=== PATIENT | male | born 1970 | race Caucasian/White ===

== ENCOUNTER 2017-03-17 21:46 | Inpatient (IN) | payer MEDICARE, OTHER ==
[2017-03-17 22:54] LABS: ADD MAN DIFF? NO
[2017-03-17 22:56] LABS: BASOPHILS % 0.3 % (0.0-2.0); EOSINOPHILS # 0.1 10^3/ul (0.0-0.5); EOSINOPHILS % 1.9 % (0.0-7.0); HEMATOCRIT 38.4 % (42.0-52.0); HEMOGLOBIN 12.7 g/dl (14.0-18.0); LYMPHOCYTES # 1.1 10^3/ul (0.8-2.9); LYMPHOCYTES % 14.9 % (15.0-51.0); MEAN CORPUSCULAR HEMOGLOBIN 26.1 pg (29.0-33.0); MEAN CORPUSCULAR HGB CONC 33.1 g/dl (32.0-37.0); MEAN PLATELET VOLUME 9.7 fl (7.4-10.4); MONOCYTE # 0.6 10^3/ul (0.3-0.9); MONOCYTES % 8.5 % (0.0-11.0); NEUTROPHIL # 5.6 10^3/ul (1.6-7.5); PLATELET COUNT 258 10^3/UL (140-415); RED BLOOD COUNT 4.86 10^6/ul (4.70-6.10); RED CELL DISTRIBUTION WIDTH 16.1 % (11.5-14.5)
[2017-03-17 22:56] LABS: WHITE BLOOD COUNT 7.5 10^3/ul (4.8-10.8)
[2017-03-17] MEDS: CEFEPIME 1GM/50 ML (PMX) 50 ML IVPB (23:15)
[2017-03-17 23:46] LABS: INR 1.04; PROTIME 13.7 Sec (11.9-14.9); PT RATIO 1.1
[2017-03-17 23:55] LABS: ALANINE AMINOTRANSFERASE 27 IU/L (13-69); ALBUMIN/GLOBULIN RATIO 0.81; ALKALINE PHOSPHATASE 114 IU/L (42-121); ANION GAP 16 (8-16); ASPARTATE AMINO TRANSFERASE 15 IU/L (15-46); BLOOD UREA NITROGEN 16 mg/dl (7-20); CALCIUM 9.2 mg/dl (8.4-10.2); CARBON DIOXIDE 28 mmol/L (21-31); CHLORIDE 97 mmol/L (97-110); CREATININE 0.69 mg/dl (0.61-1.24); GLUCOSE 114 mg/dl (70-220); LIPASE 50 U/L (23-300); POTASSIUM 3.6 mmol/L (3.5-5.1); SODIUM 137 mmol/L (135-144); TOTAL PROTEIN 8.9 g/dl (6.1-8.1)
[2017-03-17 23:56] LABS: ADD MAN DIFF? NO
[2017-03-17 23:58] LABS: BASOPHILS % 0.1 % (0.0-2.0); EOSINOPHILS # 0.1 10^3/ul (0.0-0.5); EOSINOPHILS % 1.6 % (0.0-7.0); HEMATOCRIT 36.2 % (42.0-52.0); HEMOGLOBIN 11.9 g/dl (14.0-18.0); LYMPHOCYTES # 1.2 10^3/ul (0.8-2.9); LYMPHOCYTES % 15.9 % (15.0-51.0); MEAN CORPUSCULAR HEMOGLOBIN 26.2 pg (29.0-33.0); MEAN CORPUSCULAR HGB CONC 32.9 g/dl (32.0-37.0); MEAN CORPUSCULAR VOLUME 79.6 fl (82.0-101.0); MEAN PLATELET VOLUME 9.5 fl (7.4-10.4); MONOCYTE # 0.6 10^3/ul (0.3-0.9); NEUTROPHIL # 5.6 10^3/ul (1.6-7.5); NEUTROPHILS % 74.1 % (39.0-77.0); PLATELET COUNT 240 10^3/UL (140-415); RED BLOOD COUNT 4.55 10^6/ul (4.70-6.10); RED CELL DISTRIBUTION WIDTH 15.9 % (11.5-14.5)
[2017-03-17 23:58] LABS: WHITE BLOOD COUNT 7.5 10^3/ul (4.8-10.8)
[2017-03-18] MEDS: HYDROmorphONE 0.5 MG/0.5 ML SYG IV
[2017-03-18] MEDS: ONDANSETRON 4 MG INJ IV
[2017-03-18 00:23] LABS: ALANINE AMINOTRANSFERASE 17 IU/L (13-69); ALBUMIN 3.8 g/dl (3.3-4.9); ALKALINE PHOSPHATASE 111 IU/L (42-121); ASPARTATE AMINO TRANSFERASE 15 IU/L (15-46); TOTAL PROTEIN 8.6 g/dl (6.1-8.1)
[2017-03-18 00:26] LABS: ADD UMIC YES; UR ASCORBIC ACID NEGATIVE (NEGATIVE); UR BACTERIA FEW /HPF (NONE SEEN); UR BILIRUBIN (Dip) 1+ mg/dL (NEGATIVE); UR BLOOD (Dip) NEGATIVE (NEGATIVE); UR CALCIUM OXALATE CRYSTAL MANY /HPF (NONE SEEN); UR CLARITY CLOUDY (CLEAR); UR COLOR AMBER (YELLOW); UR GLUCOSE (Dip) NEGATIVE (NEGATIVE); UR KETONES (Dip) NEGATIVE (NEGATIVE); UR LEUKOCYTE ESTERASE (Dip) 3+ Leu/ul (NEGATIVE); UR MUCUS FEW /HPF (NONE SEEN); UR NITRITE (Dip) POSITIVE (NEGATIVE); UR RBC 10 /HPF (0-5); UR SPECIFIC GRAVITY (Dip) 1.031 (1.003-1.030); UR SQUAMOUS EPITHELIAL CELL FEW /HPF (FEW); UR TOTAL PROTEIN (Dip) 2+ mg/dl (NEGATIVE); UR UROBILINOGEN (Dip) 1+ mg/dL (NEGATIVE); UR WBC > 182 /HPF (0-5)
[2017-03-18 00:53] LABS: HEPATITIS B SURFACE ANTIGEN NEGATIVE (NEGATIVE)
[2017-03-18] MEDS ORDERED: ONDANSETRON 4 MG TAB PO (01:00)
[2017-03-18] MEDS ORDERED: NACL 0.9% 3 ML SYG IV (01:00)
[2017-03-18] MEDS ORDERED: VANCOMYCIN IV PER PHARMACY XX (01:00)
[2017-03-18] MEDS ORDERED: ACETAMINOPHEN 325 MG TAB PO (01:00)
[2017-03-18] MEDS ORDERED: BISACODYL (EC) 5 MG TAB PO (01:00)
[2017-03-18 01:10] LABS: HEPATITIS C VIRAL ANTIBODY NEGATIVE (NEGATIVE)
[2017-03-18 01:19] LABS: HIV 1&2 ANTIBODY NEGATIVE (NEGATIVE)
[2017-03-18 01:39] LABS: HEPATITIS B SURFACE ANTIBODY NEGATIVE (NEGATIVE)
[2017-03-18] MEDS: NICOTINE (14 MG/24 HR) PATCH TRANSDERM ×2 (01:44→08:33)
[2017-03-18] MEDS: LEVOFLOXACIN 750MG/D5W (PMX) 150 ML IVPB (01:44)
[2017-03-18] MEDS: VANCOMYCIN 1 GM (PMX) 250 ML IVPB (01:44)
[2017-03-18] MEDS: SOD CHLORIDE 0.9% 1,000 ML IV ×2 (01:45→16:49)
[2017-03-18] MEDS: VANCOMYCIN 1.75 GM in D5W 500 ML IVPB ×2 (01:46→06:26)
[2017-03-18] MEDS ORDERED: PENDING SANTYL ORDER FOR WOUND CARE XX (02:30)
[2017-03-18] MEDS ORDERED: HYDROmorphONE 1 MG/ML SYG (03:24)
[2017-03-18] MEDS: HYDROmorphONE 1 MG/ML SYG IV ×5 (03:35→21:29)
[2017-03-18] MEDS: HYDROCODONE/APAP (5/325) TAB PO (03:36)
[2017-03-18 06:19] LABS: ADD MAN DIFF? NO
[2017-03-18 06:28] LABS: WHITE BLOOD COUNT 6.2 10^3/ul (4.8-10.8)
[2017-03-18 06:28] LABS: BASOPHILS % 0.3 % (0.0-2.0); EOSINOPHILS # 0.2 10^3/ul (0.0-0.5); EOSINOPHILS % 2.6 % (0.0-7.0); HEMOGLOBIN 11.3 g/dl (14.0-18.0); LYMPHOCYTES # 1.3 10^3/ul (0.8-2.9); LYMPHOCYTES % 20.4 % (15.0-51.0); MEAN CORPUSCULAR HEMOGLOBIN 25.1 pg (29.0-33.0); MEAN CORPUSCULAR HGB CONC 31.4 g/dl (32.0-37.0); MEAN PLATELET VOLUME 9.9 fl (7.4-10.4); MONOCYTE # 0.6 10^3/ul (0.3-0.9); NEUTROPHIL # 4.1 10^3/ul (1.6-7.5); NEUTROPHILS % 66.2 % (39.0-77.0); PLATELET COUNT 244 10^3/UL (140-415); RED CELL DISTRIBUTION WIDTH 15.7 % (11.5-14.5)
[2017-03-18 06:49] LABS: ALANINE AMINOTRANSFERASE 25 IU/L (13-69); ALBUMIN 3.8 g/dl (3.3-4.9); ALBUMIN/GLOBULIN RATIO 0.92; ALKALINE PHOSPHATASE 106 IU/L (42-121); ANION GAP 14 (8-16); ASPARTATE AMINO TRANSFERASE 15 IU/L (15-46); BLOOD UREA NITROGEN 13 mg/dl (7-20); CALCIUM 9.1 mg/dl (8.4-10.2); CARBON DIOXIDE 26 mmol/L (21-31); CHLORIDE 102 mmol/L (97-110); CHOL/HDL RATIO 5.2 RATIO; CHOLESTEROL 148 mg/dl (100-200); CREATININE 0.55 mg/dl (0.61-1.24); GLUCOSE 104 mg/dl (70-220); HDL CHOLESTEROL 28 mg/dl (27-67); LDL CHOLESTEROL,CALCULATED 95 mg/dl; MAGNESIUM 1.9 mg/dl (1.7-2.5); POTASSIUM 4.1 mmol/L (3.5-5.1); SODIUM 138 mmol/L (135-144); TOTAL PROTEIN 7.9 g/dl (6.1-8.1); TRIGLYCERIDES 125 mg/dl (0-149)
[2017-03-18 07:16] LABS: HEMOGLOBIN A1C 5.2 % (0-5.9)
[2017-03-18 07:44] LABS: THYROID STIMULATING HORMONE 0.572 MIU/L (0.465-4.680)
[2017-03-18] MEDS: DULOXETINE 30 MG CAP DR PO (08:33)
[2017-03-18] MEDS: GABAPENTIN 300 MG CAP PO ×3 (08:36→21:29)
[2017-03-18] MEDS: ALPRAZOLAM 0.5 MG TAB PO ×2 (08:49→23:08)
[2017-03-18] MEDS ORDERED: VANCOMYCIN 1.25 GM in SOD CHLORIDE 0.45% 250 ML IVPB (11:00)
[2017-03-18] MEDS: VANCOMYCIN 1.25 GM in SOD CHLORIDE 0.45% 250 ML IVPB ×2 (14:08→21:30)
[2017-03-18] MEDS ORDERED: BARIUM SULF 2% 450 ML BTL (BERRY SMOOTHIE) PO (20:00)
[2017-03-18] MEDS: SOD CHLORIDE 0.9% 100 ML (22:19)
[2017-03-18] MEDS: IODIXANOL LOCM 100 ML BTL (22:19)
[2017-03-19] MEDS ORDERED: COLLAGENASE 30 GM TUBE TOP (01:30)
[2017-03-19] MEDS: LEVOFLOXACIN 750MG/D5W (PMX) 150 ML IVPB (02:19)
[2017-03-19] MEDS: HYDROmorphONE 1 MG/ML SYG IV ×5 (03:26→20:31)
[2017-03-19] MEDS: SOD CHLORIDE 0.9% 1,000 ML IV ×2 (05:21→19:39)
[2017-03-19 06:48] LABS: VANCOMYCIN,TROUGH 24.3 ug/ml (10.0-20.0)
[2017-03-19] MEDS: DULOXETINE 30 MG CAP DR PO (08:25)
[2017-03-19] MEDS: NICOTINE (14 MG/24 HR) PATCH TRANSDERM (08:25)
[2017-03-19] MEDS: GABAPENTIN 300 MG CAP PO ×3 (08:25→20:33)
[2017-03-19] MEDS: ALPRAZOLAM 0.5 MG TAB PO ×2 (08:30→23:22)
[2017-03-19] MEDS: COLLAGENASE 30 GM TUBE TOP (11:35)
[2017-03-19] MEDS: VANCOMYCIN 1.25 GM in SOD CHLORIDE 0.45% 250 ML IVPB ×2 (12:28→23:23)
[2017-03-19] MEDS ORDERED: [UNRECOGNIZED DRUG - REMARK] MC (14:30)
[2017-03-20] MEDS ORDERED: ZOLPIDEM 5 MG TAB PO (01:00)
[2017-03-20] MEDS: HYDROmorphONE 1 MG/ML SYG IV ×5 (01:49→23:14)
[2017-03-20] MEDS: LEVOFLOXACIN 750MG/D5W (PMX) 150 ML IVPB (03:09)
[2017-03-20 06:19] LABS: BLOOD UREA NITROGEN 9 mg/dl (7-20)
[2017-03-20 06:19] LABS: CREATININE 0.63 mg/dl (0.61-1.24)
[2017-03-20 06:49] LABS: C-REACTIVE PROTEIN 7.3 mg/dl (0.0-0.9)
[2017-03-20] MEDS: GABAPENTIN 300 MG CAP PO ×3 (08:22→20:23)
[2017-03-20] MEDS: DULOXETINE 30 MG CAP DR PO (08:22)
[2017-03-20] MEDS: NICOTINE (14 MG/24 HR) PATCH TRANSDERM (08:23)
[2017-03-20] MEDS: COLLAGENASE 30 GM TUBE TOP (08:23)
[2017-03-20 09:21] LABS: ERYTHROCYTE SEDIMENTATION RATE 92 mm/Hr (0-15)
[2017-03-20] MEDS: SOD CHLORIDE 0.9% 1,000 ML IV ×3 (09:57→20:23)
[2017-03-20] MEDS: ALPRAZOLAM 0.5 MG TAB PO (10:01)
[2017-03-20] MEDS: VANCOMYCIN 1.25 GM in SOD CHLORIDE 0.45% 250 ML IVPB (12:22)
[2017-03-20] MEDS: CEFTRIAXONE 1 GM/50 ML (PMX) 50 ML IVPB (14:58)
[2017-03-21 00:05] LABS: VANCOMYCIN,TROUGH 15.1 ug/ml (10.0-20.0)
[2017-03-21] MEDS: VANCOMYCIN 1.25 GM in SOD CHLORIDE 0.45% 250 ML IVPB ×2 (00:20→12:43)
[2017-03-21] MEDS: ALPRAZOLAM 0.5 MG TAB PO ×3 (00:28→19:53)
[2017-03-21] MEDS: HYDROmorphONE 1 MG/ML SYG IV ×2 (04:40→10:06)
[2017-03-21] MEDS: GABAPENTIN 300 MG CAP PO ×3 (08:32→20:54)
[2017-03-21] MEDS: NICOTINE (14 MG/24 HR) PATCH TRANSDERM (08:32)
[2017-03-21] MEDS: DULOXETINE 30 MG CAP DR PO (08:32)
[2017-03-21] MEDS: CEFTRIAXONE 1 GM/50 ML (PMX) 50 ML IVPB (12:14)
[2017-03-21] MEDS ORDERED: oxyCODONE 5 MG TAB PO (14:30)
[2017-03-21] MEDS: SOD CHLORIDE 0.9% 1,000 ML IV ×2 (14:33→21:18)
[2017-03-21] MEDS: COLLAGENASE 30 GM TUBE TOP (15:00)
[2017-03-21] MEDS: HYDROmorphONE 2 MG/ML SYG IV ×2 (15:07→19:48)
[2017-03-21] MEDS: hydrALAzine 20 MG INJ IV (20:54)
[2017-03-22] MEDS: VANCOMYCIN 1.25 GM in SOD CHLORIDE 0.45% 250 ML IVPB ×3 (00:03→23:23)
[2017-03-22] MEDS: HYDROmorphONE 2 MG/ML SYG IV ×5 (00:04→23:19)
[2017-03-22] MEDS: NICOTINE (14 MG/24 HR) PATCH TRANSDERM (09:51)
[2017-03-22] MEDS: GABAPENTIN 300 MG CAP PO ×3 (09:51→21:02)
[2017-03-22] MEDS: DULOXETINE 30 MG CAP DR PO (09:51)
[2017-03-22] MEDS: COLLAGENASE 30 GM TUBE TOP (09:58)
[2017-03-22] MEDS: CEFTRIAXONE 1 GM/50 ML (PMX) 50 ML IVPB (11:39)
[2017-03-22] MEDS: ALPRAZOLAM 0.5 MG TAB PO (16:46)
[2017-03-22] MEDS: SOD CHLORIDE 0.9% 1,000 ML IV ×2 (18:39→23:08)
[2017-03-23] MEDS: HYDROmorphONE 2 MG/ML SYG IV ×4 (05:04→20:54)
[2017-03-23 06:23] LABS: BLOOD UREA NITROGEN 17 mg/dl (7-20)
[2017-03-23 06:23] LABS: CREATININE 0.63 mg/dl (0.61-1.24)
[2017-03-23] MEDS: GABAPENTIN 300 MG CAP PO ×3 (09:04→20:53)
[2017-03-23] MEDS: DULOXETINE 30 MG CAP DR PO (09:04)
[2017-03-23] MEDS: NICOTINE (14 MG/24 HR) PATCH TRANSDERM (09:04)
[2017-03-23] MEDS: COLLAGENASE 30 GM TUBE TOP (09:08)
[2017-03-23] MEDS: CEFTRIAXONE 1 GM/50 ML (PMX) 50 ML IVPB (12:26)
[2017-03-23] MEDS: VANCOMYCIN 1.25 GM in SOD CHLORIDE 0.45% 250 ML IVPB ×2 (13:33→23:43)
[2017-03-23] MEDS: ALPRAZOLAM 0.5 MG TAB PO ×2 (13:37→23:54)
[2017-03-23] MEDS: SOD CHLORIDE 0.9% 1,000 ML IV (23:45)
[2017-03-24] MEDS: HYDROmorphONE 2 MG/ML SYG IV ×4 (01:54→17:58)
[2017-03-24 06:44] LABS: ADD MAN DIFF? NO
[2017-03-24 06:47] LABS: BASOPHILS % 0.4 % (0.0-2.0); EOSINOPHILS # 0.3 10^3/ul (0.0-0.5); EOSINOPHILS % 3.5 % (0.0-7.0); HEMATOCRIT 39.9 % (42.0-52.0); HEMOGLOBIN 12.5 g/dl (14.0-18.0); LYMPHOCYTES # 2.8 10^3/ul (0.8-2.9); LYMPHOCYTES % 34.2 % (15.0-51.0); MEAN CORPUSCULAR HEMOGLOBIN 25.5 pg (29.0-33.0); MEAN CORPUSCULAR HGB CONC 31.3 g/dl (32.0-37.0); MEAN CORPUSCULAR VOLUME 81.3 fl (82.0-101.0); MEAN PLATELET VOLUME 9.5 fl (7.4-10.4); MONOCYTE # 0.4 10^3/ul (0.3-0.9); MONOCYTES % 5.1 % (0.0-11.0); NEUTROPHIL # 4.6 10^3/ul (1.6-7.5); NEUTROPHILS % 56.4 % (39.0-77.0); PLATELET COUNT 340 10^3/UL (140-415); RED BLOOD COUNT 4.91 10^6/ul (4.70-6.10); RED CELL DISTRIBUTION WIDTH 15.5 % (11.5-14.5)
[2017-03-24 06:47] LABS: WHITE BLOOD COUNT 8.2 10^3/ul (4.8-10.8)
[2017-03-24 07:23] LABS: ANION GAP 15 (8-16); BLOOD UREA NITROGEN 16 mg/dl (7-20); CALCIUM 9.4 mg/dl (8.4-10.2); CARBON DIOXIDE 30 mmol/L (21-31); CHLORIDE 104 mmol/L (97-110); CREATININE 0.67 mg/dl (0.61-1.24); GLUCOSE 98 mg/dl (70-220); MAGNESIUM 1.8 mg/dl (1.7-2.5); POTASSIUM 4.9 mmol/L (3.5-5.1); SODIUM 144 mmol/L (135-144)
[2017-03-24] MEDS: GABAPENTIN 300 MG CAP PO ×3 (08:25→21:13)
[2017-03-24] MEDS: COLLAGENASE 30 GM TUBE TOP (08:25)
[2017-03-24] MEDS: DULOXETINE 30 MG CAP DR PO (08:25)
[2017-03-24] MEDS: NICOTINE (14 MG/24 HR) PATCH TRANSDERM (08:26)
[2017-03-24] MEDS: ALPRAZOLAM 0.5 MG TAB PO ×2 (11:54→23:30)
[2017-03-24] MEDS: CEFTRIAXONE 1 GM/50 ML (PMX) 50 ML IVPB (11:54)
[2017-03-24] MEDS: VANCOMYCIN 1.25 GM in SOD CHLORIDE 0.45% 250 ML IVPB (12:49)
[2017-03-24] MEDS: SOD CHLORIDE 0.9% 1,000 ML IV ×2 (17:13→23:23)
[2017-03-24 23:50] LABS: VANCOMYCIN,TROUGH 21.3 ug/ml (10.0-20.0)
[2017-03-25] MEDS: HYDROmorphONE 2 MG/ML SYG IV ×4 (03:44→21:14)
[2017-03-25 05:20] LABS: ADD MAN DIFF? NO
[2017-03-25 05:35] LABS: BASOPHILS % 0.4 % (0.0-2.0); EOSINOPHILS # 0.3 10^3/ul (0.0-0.5); EOSINOPHILS % 3.3 % (0.0-7.0); HEMATOCRIT 38.9 % (42.0-52.0); LYMPHOCYTES # 2.4 10^3/ul (0.8-2.9); LYMPHOCYTES % 31.6 % (15.0-51.0); MEAN CORPUSCULAR HEMOGLOBIN 24.9 pg (29.0-33.0); MEAN CORPUSCULAR HGB CONC 30.8 g/dl (32.0-37.0); MEAN CORPUSCULAR VOLUME 80.9 fl (82.0-101.0); MEAN PLATELET VOLUME 9.9 fl (7.4-10.4); MONOCYTE # 0.4 10^3/ul (0.3-0.9); MONOCYTES % 5.3 % (0.0-11.0); NEUTROPHIL # 4.4 10^3/ul (1.6-7.5); NEUTROPHILS % 59.1 % (39.0-77.0); PLATELET COUNT 322 10^3/UL (140-415); RED BLOOD COUNT 4.81 10^6/ul (4.70-6.10); RED CELL DISTRIBUTION WIDTH 15.6 % (11.5-14.5)
[2017-03-25 05:35] LABS: WHITE BLOOD COUNT 7.5 10^3/ul (4.8-10.8)
[2017-03-25 06:19] LABS: ANION GAP 13 (8-16); BLOOD UREA NITROGEN 22 mg/dl (7-20); CALCIUM 9.3 mg/dl (8.4-10.2); CARBON DIOXIDE 29 mmol/L (21-31); CHLORIDE 103 mmol/L (97-110); CREATININE 0.71 mg/dl (0.61-1.24); GLUCOSE 146 mg/dl (70-220); POTASSIUM 4.1 mmol/L (3.5-5.1); SODIUM 141 mmol/L (135-144)
[2017-03-25] MEDS: GABAPENTIN 300 MG CAP PO ×3 (09:01→20:16)
[2017-03-25] MEDS: DULOXETINE 30 MG CAP DR PO (09:01)
[2017-03-25] MEDS: NICOTINE (14 MG/24 HR) PATCH TRANSDERM (09:01)
[2017-03-25] MEDS: COLLAGENASE 30 GM TUBE TOP (09:02)
[2017-03-25] MEDS: CEFTRIAXONE 1 GM/50 ML (PMX) 50 ML IVPB (12:30)
[2017-03-25] MEDS: ALPRAZOLAM 0.5 MG TAB PO (12:31)
[2017-03-25] MEDS: VANCOMYCIN 1.5 GM in DEXTROSE 5% 500 ML IVPB (13:54)
[2017-03-25] MEDS: SOD CHLORIDE 0.9% 1,000 ML IV (18:37)
[2017-03-25] MEDS: DOCUSATE SODIUM 100 MG CAP PO (20:16)
[2017-03-26] MEDS: HYDROmorphONE 2 MG/ML SYG IV ×3 (05:06→18:32)
[2017-03-26 05:17] LABS: ADD MAN DIFF? NO
[2017-03-26 05:26] LABS: WHITE BLOOD COUNT 7.9 10^3/ul (4.8-10.8)
[2017-03-26 05:26] LABS: BASOPHILS % 0.4 % (0.0-2.0); EOSINOPHILS # 0.3 10^3/ul (0.0-0.5); EOSINOPHILS % 3.9 % (0.0-7.0); HEMATOCRIT 41.3 % (42.0-52.0); HEMOGLOBIN 12.9 g/dl (14.0-18.0); LYMPHOCYTES # 2.3 10^3/ul (0.8-2.9); LYMPHOCYTES % 29.2 % (15.0-51.0); MEAN CORPUSCULAR HEMOGLOBIN 25.5 pg (29.0-33.0); MEAN CORPUSCULAR HGB CONC 31.2 g/dl (32.0-37.0); MEAN CORPUSCULAR VOLUME 81.8 fl (82.0-101.0); MEAN PLATELET VOLUME 9.8 fl (7.4-10.4); MONOCYTE # 0.5 10^3/ul (0.3-0.9); MONOCYTES % 6.1 % (0.0-11.0); NEUTROPHIL # 4.7 10^3/ul (1.6-7.5); PLATELET COUNT 332 10^3/UL (140-415); RED BLOOD COUNT 5.05 10^6/ul (4.70-6.10); RED CELL DISTRIBUTION WIDTH 15.7 % (11.5-14.5)
[2017-03-26 06:04] LABS: ANION GAP 15 (8-16); BLOOD UREA NITROGEN 18 mg/dl (7-20); CALCIUM 9.2 mg/dl (8.4-10.2); CARBON DIOXIDE 29 mmol/L (21-31); CHLORIDE 103 mmol/L (97-110); CREATININE 0.67 mg/dl (0.61-1.24); GLUCOSE 97 mg/dl (70-220); POTASSIUM 4.4 mmol/L (3.5-5.1); SODIUM 143 mmol/L (135-144)
[2017-03-26] MEDS: COLLAGENASE 30 GM TUBE TOP (08:48)
[2017-03-26] MEDS: SOD CHLORIDE 0.9% 1,000 ML IV ×2 (08:48→23:15)
[2017-03-26] MEDS: NICOTINE (14 MG/24 HR) PATCH TRANSDERM (08:49)
[2017-03-26] MEDS: GABAPENTIN 300 MG CAP PO ×3 (08:49→21:07)
[2017-03-26] MEDS: DULOXETINE 30 MG CAP DR PO (08:49)
[2017-03-26] MEDS: CEFTRIAXONE 1 GM/50 ML (PMX) 50 ML IVPB (13:26)
[2017-03-26] MEDS: VANCOMYCIN 1.5 GM in DEXTROSE 5% 500 ML IVPB (14:04)
[2017-03-26] MEDS: ALPRAZOLAM 0.5 MG TAB PO ×2 (14:09→21:08)
[2017-03-27] MEDS: HYDROmorphONE 2 MG/ML SYG IV ×5 (00:49→20:50)
[2017-03-27] MEDS: SOD CHLORIDE 0.9% 1,000 ML IV (01:41)
[2017-03-27 06:19] LABS: ADD MAN DIFF? NO
[2017-03-27 06:30] LABS: WHITE BLOOD COUNT 7.9 10^3/ul (4.8-10.8)
[2017-03-27 06:30] LABS: BASOPHIL # 0.1 10^3/ul (0.0-0.1); BASOPHILS % 0.6 % (0.0-2.0); EOSINOPHILS # 0.3 10^3/ul (0.0-0.5); EOSINOPHILS % 3.7 % (0.0-7.0); HEMATOCRIT 40.3 % (42.0-52.0); HEMOGLOBIN 12.2 g/dl (14.0-18.0); LYMPHOCYTES # 2.8 10^3/ul (0.8-2.9); LYMPHOCYTES % 36.2 % (15.0-51.0); MEAN CORPUSCULAR HEMOGLOBIN 24.7 pg (29.0-33.0); MEAN CORPUSCULAR HGB CONC 30.3 g/dl (32.0-37.0); MEAN CORPUSCULAR VOLUME 81.6 fl (82.0-101.0); MEAN PLATELET VOLUME 10.1 fl (7.4-10.4); MONOCYTE # 0.6 10^3/ul (0.3-0.9); MONOCYTES % 7.1 % (0.0-11.0); NEUTROPHIL # 4.1 10^3/ul (1.6-7.5); NEUTROPHILS % 51.9 % (39.0-77.0); PLATELET COUNT 310 10^3/UL (140-415); RED BLOOD COUNT 4.94 10^6/ul (4.70-6.10); RED CELL DISTRIBUTION WIDTH 15.8 % (11.5-14.5)
[2017-03-27 07:15] LABS: ANION GAP 15 (8-16); BLOOD UREA NITROGEN 17 mg/dl (7-20); CALCIUM 8.8 mg/dl (8.4-10.2); CARBON DIOXIDE 29 mmol/L (21-31); CHLORIDE 105 mmol/L (97-110); CREATININE 0.69 mg/dl (0.61-1.24); GLUCOSE 97 mg/dl (70-220); POTASSIUM 4.3 mmol/L (3.5-5.1); SODIUM 145 mmol/L (135-144)
[2017-03-27] MEDS: NICOTINE (14 MG/24 HR) PATCH TRANSDERM (09:09)
[2017-03-27] MEDS: DULOXETINE 30 MG CAP DR PO (09:10)
[2017-03-27] MEDS: ALPRAZOLAM 0.5 MG TAB PO ×2 (09:10→14:50)
[2017-03-27] MEDS: GABAPENTIN 300 MG CAP PO ×3 (09:10→20:40)
[2017-03-27] MEDS: COLLAGENASE 30 GM TUBE TOP ×2 (09:14→09:15)
[2017-03-27] MEDS: CEFTRIAXONE 1 GM/50 ML (PMX) 50 ML IVPB (12:53)
[2017-03-27] MEDS: VANCOMYCIN 1.5 GM in DEXTROSE 5% 500 ML IVPB (13:52)
[2017-03-27] MEDS: LIDOCAINE 1% (MPF) 5 ML VIAL SC (19:25)
[2017-03-27] MEDS: SOD CHLORIDE 0.9% 100 ML (19:40)
[2017-03-28] MEDS: ALPRAZOLAM 0.5 MG TAB PO ×2 (01:49→10:25)
[2017-03-28] MEDS: HYDROmorphONE 2 MG/ML SYG IV ×4 (04:08→16:36)
[2017-03-28] MEDS: DOCUSATE SODIUM 100 MG CAP PO (05:39)
[2017-03-28] MEDS: DULOXETINE 30 MG CAP DR PO (08:05)
[2017-03-28] MEDS: GABAPENTIN 300 MG CAP PO ×2 (08:05→12:10)
[2017-03-28] MEDS: NICOTINE (14 MG/24 HR) PATCH TRANSDERM (08:05)
[2017-03-28] MEDS: COLLAGENASE 30 GM TUBE TOP (08:07)
[2017-03-28] MEDS: CEFTRIAXONE 1 GM/50 ML (PMX) 50 ML IVPB (11:59)
[2017-03-28] MEDS: VANCOMYCIN 1.5 GM in DEXTROSE 5% 500 ML IVPB (12:54)
== END 2017-03-28 19:01 | disposition home health service (06) | DRG 580 ==
LOC: PP2 23:13 → E/R 21:46
PROVIDERS: Family Medicine
PROC: 0KBN0ZZ Excision of Right Hip Muscle, Open Approach (ICD-10-PCS; principal; 2017-03-21)
PROC: 02HV33Z Insertion of Infusion Device into Superior Vena Cava, Percutaneous Approach (ICD-10-PCS; 2017-03-27)
PROC: B548ZZA Ultrasonography of Superior Vena Cava, Guidance (ICD-10-PCS; 2017-03-27)
DX: L89.210 Pressure ulcer of right hip, unstageable (principal); G82.20 Paraplegia, unspecified; L89.314 Pressure ulcer of right buttock, stage 4; T83.511A Infection and inflammatory reaction due to indwelling urethral catheter, initial encounter; S14.109S Unspecified injury at unspecified level of cervical spinal cord, sequela; M86.8X8 Other osteomyelitis, other site; N39.0 Urinary tract infection, site not specified; Z74.01 Bed confinement status; F32.9 Major depressive disorder, single episode, unspecified; X58.XXXS Exposure to other specified factors, sequela; F17.200 Nicotine dependence, unspecified, uncomplicated; D50.9 Iron deficiency anemia, unspecified; B95.2 Enterococcus as the cause of diseases classified elsewhere; B95.62 Methicillin resistant Staphylococcus aureus infection as the cause of diseases classified elsewhere; B96.1 Klebsiella pneumoniae [K. pneumoniae] as the cause of diseases classified elsewhere; B96.4 Proteus (mirabilis) (morganii) as the cause of diseases classified elsewhere
CPT/HCPCS: 36415; 36569; 71045; 72193; 73510; 76937; 78315; 80048; 80053; 80061; 80076; 80202; 81001; 82565; 83036; 83690; 83735; 84443; 84520; 85025; 85610; 85651; 86140; 86703; 86706; 86803; 87040; 87070; 87086; 87340; 96365; 96375; 99285-25; A9503

== ENCOUNTER 2017-05-06 22:13 | Inpatient (IN) | payer MEDICARE, OTHER ==
[2017-05-06 23:58] LABS: ADD MAN DIFF? NO
[2017-05-07 00:04] LABS: WHITE BLOOD COUNT 6.5 10^3/ul (4.8-10.8)
[2017-05-07 00:04] LABS: BASOPHILS % 0.5 % (0.0-2.0); EOSINOPHILS # 0.1 10^3/ul (0.0-0.5); EOSINOPHILS % 0.9 % (0.0-7.0); HEMATOCRIT 37.9 % (42.0-52.0); HEMOGLOBIN 12.2 g/dl (14.0-18.0); LYMPHOCYTES # 1.5 10^3/ul (0.8-2.9); LYMPHOCYTES % 22.8 % (15.0-51.0); MEAN CORPUSCULAR HEMOGLOBIN 25.8 pg (29.0-33.0); MEAN CORPUSCULAR HGB CONC 32.2 g/dl (32.0-37.0); MEAN CORPUSCULAR VOLUME 80.3 fl (82.0-101.0); MONOCYTE # 0.3 10^3/ul (0.3-0.9); NEUTROPHIL # 4.6 10^3/ul (1.6-7.5); NEUTROPHILS % 71.5 % (39.0-77.0); PLATELET COUNT 321 10^3/UL (140-415); RED BLOOD COUNT 4.72 10^6/ul (4.70-6.10); RED CELL DISTRIBUTION WIDTH 16.6 % (11.5-14.5)
[2017-05-07] MEDS: SOD CHLORIDE 0.9% 1,000 ML IV (00:05)
[2017-05-07 00:30] LABS: ALANINE AMINOTRANSFERASE 23 IU/L (13-69); ALBUMIN 4.5 g/dl (3.3-4.9); ALBUMIN/GLOBULIN RATIO 1.04; ALKALINE PHOSPHATASE 137 IU/L (42-121); ANION GAP 24 (8-16); ASPARTATE AMINO TRANSFERASE 21 IU/L (15-46); BLOOD UREA NITROGEN 9 mg/dl (7-20); CALCIUM 9.4 mg/dl (8.4-10.2); CARBON DIOXIDE 22 mmol/L (21-31); CHLORIDE 110 mmol/L (97-110); CREATININE 0.57 mg/dl (0.61-1.24); GLUCOSE 89 mg/dl (70-220); SODIUM 152 mmol/L (135-144); TOTAL PROTEIN 8.8 g/dl (6.1-8.1)
[2017-05-07 00:33] LABS: LACTIC ACID 2.8 mmol/L (0.5-2.0)
[2017-05-07 00:42] LABS: TROPONIN-I < 0.012 ng/ml (0.00-0.12)
[2017-05-07] MEDS: morphine 4 MG/ML VIAL IV (00:57)
[2017-05-07] MEDS ORDERED: ACETAMINOPHEN 325 MG TAB PO (01:00)
[2017-05-07] MEDS ORDERED: ALBUTEROL/IPRATROPIUM (NEB) 3 ML AMP HHN (01:00)
[2017-05-07] MEDS ORDERED: NACL 0.9% 3 ML SYG IV (01:00)
[2017-05-07] MEDS ORDERED: ONDANSETRON 4 MG INJ IV (01:00)
[2017-05-07 01:01] LABS: ADD UMIC YES; UR ASCORBIC ACID NEGATIVE (NEGATIVE); UR BACTERIA FEW /HPF (NONE SEEN); UR BILIRUBIN (Dip) NEGATIVE (NEGATIVE); UR BLOOD (Dip) 1+ mg/dL (NEGATIVE); UR CLARITY CLEAR (CLEAR); UR COLOR YELLOW (YELLOW); UR GLUCOSE (Dip) NEGATIVE (NEGATIVE); UR KETONES (Dip) NEGATIVE (NEGATIVE); UR LEUKOCYTE ESTERASE (Dip) 2+ Leu/ul (NEGATIVE); UR MUCUS FEW /HPF (NONE SEEN); UR NITRITE (Dip) NEGATIVE (NEGATIVE); UR RBC 14 /HPF (0-5); UR SPECIFIC GRAVITY (Dip) 1.025 (1.003-1.030); UR TOTAL PROTEIN (Dip) 2+ mg/dl (NEGATIVE); UR UROBILINOGEN (Dip) NEGATIVE (NEGATIVE); UR WBC 15 /HPF (0-5)
[2017-05-07] MEDS: CEFTRIAXONE 1 GM/50 ML (PMX) 50 ML IVPB ×3 (01:40→20:23)
[2017-05-07] MEDS: GABAPENTIN 300 MG CAP PO ×3 (02:31→20:23)
[2017-05-07] MEDS: ALPRAZOLAM 1 MG TAB PO (02:58)
[2017-05-07] MEDS: morphine 2 MG INJ IV ×2 (04:37→08:02)
[2017-05-07 05:10] LABS: ADD MAN DIFF? NO
[2017-05-07 05:13] LABS: BASOPHILS % 0.4 % (0.0-2.0); EOSINOPHILS # 0.1 10^3/ul (0.0-0.5); HEMATOCRIT 34.8 % (42.0-52.0); HEMOGLOBIN 11.1 g/dl (14.0-18.0); LYMPHOCYTES % 28.4 % (15.0-51.0); MEAN CORPUSCULAR HEMOGLOBIN 25.7 pg (29.0-33.0); MEAN CORPUSCULAR HGB CONC 31.9 g/dl (32.0-37.0); MEAN CORPUSCULAR VOLUME 80.6 fl (82.0-101.0); MEAN PLATELET VOLUME 9.9 fl (7.4-10.4); MONOCYTE # 0.5 10^3/ul (0.3-0.9); MONOCYTES % 6.7 % (0.0-11.0); NEUTROPHIL # 4.5 10^3/ul (1.6-7.5); NEUTROPHILS % 63.2 % (39.0-77.0); PLATELET COUNT 296 10^3/UL (140-415); RED BLOOD COUNT 4.32 10^6/ul (4.70-6.10); RED CELL DISTRIBUTION WIDTH 16.8 % (11.5-14.5)
[2017-05-07 05:13] LABS: WHITE BLOOD COUNT 7.2 10^3/ul (4.8-10.8)
[2017-05-07] MEDS ORDERED: HYDROCODONE/APAP (5/325) TAB PO (05:30)
[2017-05-07 05:39] LABS: LACTIC ACID 1.6 mmol/L (0.5-2.0)
[2017-05-07 05:47] LABS: ALANINE AMINOTRANSFERASE 20 IU/L (13-69); ALBUMIN 4.2 g/dl (3.3-4.9); ALBUMIN/GLOBULIN RATIO 1.05; ALKALINE PHOSPHATASE 126 IU/L (42-121); ANION GAP 17 (8-16); ASPARTATE AMINO TRANSFERASE 19 IU/L (15-46); BILIRUBIN,INDIRECT 0.1 mg/dl (0-1.1); BILIRUBIN,TOTAL 0.1 mg/dl (0.2-1.3); BLOOD UREA NITROGEN 10 mg/dl (7-20); CALCIUM 8.9 mg/dl (8.4-10.2); CARBON DIOXIDE 26 mmol/L (21-31); CHLORIDE 110 mmol/L (97-110); CREATININE 0.57 mg/dl (0.61-1.24); GLUCOSE 81 mg/dl (70-220); SODIUM 149 mmol/L (135-144); TOTAL PROTEIN 8.2 g/dl (6.1-8.1)
[2017-05-07] MEDS: HYDROCODONE/APAP (5/325) TAB PO ×4 (05:48→23:48)
[2017-05-07] MEDS: DEXTROSE 5% 1,000 ML IV ×2 (05:50→09:20)
[2017-05-07] MEDS ORDERED: PENDING SANTYL ORDER FOR WOUND CARE XX (08:00)
[2017-05-07] MEDS: ALPRAZOLAM 0.5 MG TAB PO (09:09)
[2017-05-07] MEDS: ENOXAPARIN 40 MG/0.4 ML SYG SC (09:10)
[2017-05-07] MEDS: HYDROmorphONE 0.5 MG/0.5 ML SYG IV ×5 (09:44→21:36)
[2017-05-07] MEDS: NICOTINE (21 MG/24 HR) PATCH TRANSDERM (11:19)
[2017-05-07] MEDS: morphine (ER) 15 MG TAB PO ×2 (11:19→20:23)
[2017-05-07] MEDS: DULOXETINE 30 MG CAP DR PO (11:19)
[2017-05-07] MEDS: hydrALAzine 20 MG INJ IV (11:32)
[2017-05-07] MEDS ORDERED: HYDROmorphONE 0.5 MG/0.5 ML SYG IV (12:00)
[2017-05-07] MEDS: LORAZEPAM 1 MG TAB PO ×2 (13:01→20:23)
[2017-05-08] MEDS: HYDROmorphONE 0.5 MG/0.5 ML SYG IV ×7 (00:54→21:31)
[2017-05-08] MEDS: LORAZEPAM 1 MG TAB PO ×2 (02:58→09:07)
[2017-05-08] MEDS: COLLAGENASE 30 GM TUBE TOP ×2 (02:59→09:07)
[2017-05-08] MEDS: DEXTROSE 5% 1,000 ML IV (03:16)
[2017-05-08 06:08] LABS: ADD MAN DIFF? NO
[2017-05-08 06:10] LABS: BASOPHILS % 0.5 % (0.0-2.0); EOSINOPHILS # 0.1 10^3/ul (0.0-0.5); EOSINOPHILS % 1.9 % (0.0-7.0); HEMATOCRIT 32.2 % (42.0-52.0); HEMOGLOBIN 10.5 g/dl (14.0-18.0); LYMPHOCYTES % 31.4 % (15.0-51.0); MEAN CORPUSCULAR HEMOGLOBIN 26.3 pg (29.0-33.0); MEAN CORPUSCULAR HGB CONC 32.6 g/dl (32.0-37.0); MEAN CORPUSCULAR VOLUME 80.5 fl (82.0-101.0); MEAN PLATELET VOLUME 9.8 fl (7.4-10.4); MONOCYTE # 0.5 10^3/ul (0.3-0.9); MONOCYTES % 8.4 % (0.0-11.0); NEUTROPHIL # 3.6 10^3/ul (1.6-7.5); NEUTROPHILS % 57.6 % (39.0-77.0); PLATELET COUNT 268 10^3/UL (140-415); RED CELL DISTRIBUTION WIDTH 16.8 % (11.5-14.5)
[2017-05-08 06:10] LABS: WHITE BLOOD COUNT 6.2 10^3/ul (4.8-10.8)
[2017-05-08 06:36] LABS: ALANINE AMINOTRANSFERASE 25 IU/L (13-69); ALBUMIN 3.8 g/dl (3.3-4.9); ALBUMIN/GLOBULIN RATIO 1.05; ALKALINE PHOSPHATASE 109 IU/L (42-121); ANION GAP 14 (8-16); ASPARTATE AMINO TRANSFERASE 18 IU/L (15-46); BILIRUBIN,INDIRECT 0.2 mg/dl (0-1.1); BILIRUBIN,TOTAL 0.2 mg/dl (0.2-1.3); BLOOD UREA NITROGEN 7 mg/dl (7-20); CALCIUM 8.8 mg/dl (8.4-10.2); CARBON DIOXIDE 29 mmol/L (21-31); CHLORIDE 108 mmol/L (97-110); CREATININE 0.62 mg/dl (0.61-1.24); GLUCOSE 88 mg/dl (70-220); MAGNESIUM 1.8 mg/dl (1.7-2.5); PHOSPHORUS 3.8 mg/dl (2.5-4.9); POTASSIUM 4.3 mmol/L (3.5-5.1); SODIUM 147 mmol/L (135-144); TOTAL PROTEIN 7.4 g/dl (6.1-8.1)
[2017-05-08] MEDS: CEFTRIAXONE 1 GM/50 ML (PMX) 50 ML IVPB ×2 (09:06→20:21)
[2017-05-08] MEDS: morphine (ER) 15 MG TAB PO (09:07)
[2017-05-08] MEDS: GABAPENTIN 300 MG CAP PO ×3 (09:07→20:21)
[2017-05-08] MEDS: DULOXETINE 30 MG CAP DR PO (09:07)
[2017-05-08] MEDS: NICOTINE (21 MG/24 HR) PATCH TRANSDERM (09:07)
[2017-05-08] MEDS: ENOXAPARIN 40 MG/0.4 ML SYG SC (09:09)
[2017-05-08] MEDS: ALPRAZOLAM 0.5 MG TAB PO ×3 (13:05→23:41)
[2017-05-08] MEDS: METHADONE (1 MG/ML 5 ML PO UD SYG) PO ×3 (13:45→23:40)
[2017-05-08] MEDS: hydrALAzine 20 MG INJ IV (14:33)
[2017-05-08] MEDS: traZODone 50 MG TAB PO (20:21)
[2017-05-08] MEDS: SOD CHLORIDE 0.9% 1,000 ML IV (20:21)
[2017-05-09] MEDS: HYDROmorphONE 0.5 MG/0.5 ML SYG IV ×8 (01:05→22:37)
[2017-05-09] MEDS: ALPRAZOLAM 0.5 MG TAB PO ×3 (06:09→19:00)
[2017-05-09] MEDS: METHADONE (1 MG/ML 5 ML PO UD SYG) PO ×3 (06:10→19:00)
[2017-05-09 06:32] LABS: ANION GAP 16 (8-16); BLOOD UREA NITROGEN 10 mg/dl (7-20); CALCIUM 9.1 mg/dl (8.4-10.2); CARBON DIOXIDE 27 mmol/L (21-31); CHLORIDE 107 mmol/L (97-110); CREATININE 0.72 mg/dl (0.61-1.24); GLUCOSE 82 mg/dl (70-220); MAGNESIUM 1.8 mg/dl (1.7-2.5); PHOSPHORUS 3.6 mg/dl (2.5-4.9); POTASSIUM 4.2 mmol/L (3.5-5.1); SODIUM 146 mmol/L (135-144)
[2017-05-09] MEDS: GABAPENTIN 300 MG CAP PO ×3 (08:35→20:42)
[2017-05-09] MEDS: DULOXETINE 30 MG CAP DR PO (08:35)
[2017-05-09] MEDS: CEFTRIAXONE 1 GM/50 ML (PMX) 50 ML IVPB ×2 (08:36→20:42)
[2017-05-09] MEDS: ENOXAPARIN 40 MG/0.4 ML SYG SC (08:36)
[2017-05-09] MEDS: NICOTINE (21 MG/24 HR) PATCH TRANSDERM (08:36)
[2017-05-09] MEDS: COLLAGENASE 30 GM TUBE TOP (08:43)
[2017-05-09] MEDS: BACLOFEN 10 MG TAB PO ×2 (13:18→20:42)
[2017-05-09] MEDS: SOD CHLORIDE 0.9% 1,000 ML IV ×2 (15:03→22:44)
[2017-05-09] MEDS: traZODone 50 MG TAB PO (20:42)
[2017-05-10] MEDS: ALPRAZOLAM 0.5 MG TAB PO ×4 (00:35→17:19)
[2017-05-10] MEDS: METHADONE (1 MG/ML 5 ML PO UD SYG) PO ×4 (00:36→17:19)
[2017-05-10] MEDS: HYDROmorphONE 0.5 MG/0.5 ML SYG IV ×6 (05:21→21:54)
[2017-05-10 06:31] LABS: ANION GAP 16 (8-16); BLOOD UREA NITROGEN 12 mg/dl (7-20); CARBON DIOXIDE 26 mmol/L (21-31); CHLORIDE 110 mmol/L (97-110); CREATININE 0.74 mg/dl (0.61-1.24); GLUCOSE 81 mg/dl (70-220); MAGNESIUM 1.9 mg/dl (1.7-2.5); PHOSPHORUS 4.4 mg/dl (2.5-4.9); POTASSIUM 4.2 mmol/L (3.5-5.1); SODIUM 148 mmol/L (135-144)
[2017-05-10] MEDS: BACLOFEN 10 MG TAB PO ×4 (09:00→20:31)
[2017-05-10] MEDS: DULOXETINE 30 MG CAP DR PO (09:00)
[2017-05-10] MEDS: ENOXAPARIN 40 MG/0.4 ML SYG SC (09:00)
[2017-05-10] MEDS: GABAPENTIN 300 MG CAP PO ×3 (09:00→20:30)
[2017-05-10] MEDS: CEFTRIAXONE 1 GM/50 ML (PMX) 50 ML IVPB (09:00)
[2017-05-10] MEDS: NICOTINE (21 MG/24 HR) PATCH TRANSDERM (09:01)
[2017-05-10] MEDS: COLLAGENASE 30 GM TUBE TOP (09:11)
[2017-05-10] MEDS: hydrALAzine 20 MG INJ IV (10:21)
[2017-05-10] MEDS ORDERED: AMIKACIN IV PER PHARMACY XX (17:00)
[2017-05-10] MEDS: AMIKACIN 1,000 MG in SOD CHLORIDE 0.9% 100 ML IVPB (18:34)
[2017-05-10] MEDS: traZODone 50 MG TAB PO (20:31)
[2017-05-11] MEDS: SOD CHLORIDE 0.9% 1,000 ML IV ×2 (00:23→20:28)
[2017-05-11] MEDS: ALPRAZOLAM 0.5 MG TAB PO ×4 (00:23→18:02)
[2017-05-11] MEDS: METHADONE (1 MG/ML 5 ML PO UD SYG) PO ×4 (00:23→18:01)
[2017-05-11] MEDS: HYDROmorphONE 0.5 MG/0.5 ML SYG IV ×7 (01:05→23:46)
[2017-05-11] MEDS: [UNRECOGNIZED DRUG - REMARK] XX (03:59)
[2017-05-11 07:11] LABS: ALBUMIN 3.8 g/dl (3.3-4.9); ANION GAP 16 (8-16); BLOOD UREA NITROGEN 12 mg/dl (7-20); CALCIUM 8.9 mg/dl (8.4-10.2); CARBON DIOXIDE 29 mmol/L (21-31); CHLORIDE 105 mmol/L (97-110); CREATININE 0.64 mg/dl (0.61-1.24); GLUCOSE 88 mg/dl (70-220); MAGNESIUM 1.8 mg/dl (1.7-2.5); PHOSPHORUS 3.4 mg/dl (2.5-4.9); POTASSIUM 4.2 mmol/L (3.5-5.1); SODIUM 146 mmol/L (135-144)
[2017-05-11] MEDS: NICOTINE (21 MG/24 HR) PATCH TRANSDERM (09:07)
[2017-05-11] MEDS: BACLOFEN 10 MG TAB PO ×4 (09:07→20:22)
[2017-05-11] MEDS: DULOXETINE 30 MG CAP DR PO (09:07)
[2017-05-11] MEDS: GABAPENTIN 300 MG CAP PO ×3 (09:07→20:22)
[2017-05-11] MEDS: COLLAGENASE 30 GM TUBE TOP (09:11)
[2017-05-11] MEDS: ENOXAPARIN 40 MG/0.4 ML SYG SC (09:15)
[2017-05-11] MEDS: AMIKACIN 1,000 MG in SOD CHLORIDE 0.9% 100 ML IVPB (18:01)
[2017-05-11] MEDS: traZODone 100 MG TAB PO (20:21)
[2017-05-12] MEDS: ALPRAZOLAM 0.5 MG TAB PO ×4 (00:45→18:03)
[2017-05-12] MEDS: METHADONE (1 MG/ML 5 ML PO UD SYG) PO ×4 (00:45→18:03)
[2017-05-12] MEDS: NICOTINE (21 MG/24 HR) PATCH TRANSDERM (08:56)
[2017-05-12] MEDS: BACLOFEN 10 MG TAB PO ×4 (08:56→21:09)
[2017-05-12] MEDS: GABAPENTIN 300 MG CAP PO ×3 (08:56→21:09)
[2017-05-12] MEDS: DULOXETINE 30 MG CAP DR PO (08:56)
[2017-05-12] MEDS: ENOXAPARIN 40 MG/0.4 ML SYG SC (08:57)
[2017-05-12] MEDS: COLLAGENASE 30 GM TUBE TOP (08:58)
[2017-05-12] MEDS: AMIKACIN 1,000 MG in SOD CHLORIDE 0.9% 100 ML IVPB (18:02)
[2017-05-12] MEDS: traZODone 100 MG TAB PO (21:09)
[2017-05-12] MEDS: HYDROmorphONE 0.5 MG/0.5 ML SYG IV (21:25)
[2017-05-12] MEDS: SOD CHLORIDE 0.9% 1,000 ML IV (23:30)
[2017-05-13] MEDS: HYDROmorphONE 0.5 MG/0.5 ML SYG IV ×4 (05:03→22:11)
[2017-05-13] MEDS: ALPRAZOLAM 0.5 MG TAB PO ×4 (06:19→17:27)
[2017-05-13] MEDS: METHADONE (1 MG/ML 5 ML PO UD SYG) PO ×4 (06:20→17:28)
[2017-05-13] MEDS: COLLAGENASE 30 GM TUBE TOP ×2 (09:00→12:23)
[2017-05-13] MEDS: GABAPENTIN 300 MG CAP PO ×3 (09:28→22:52)
[2017-05-13] MEDS: ENOXAPARIN 40 MG/0.4 ML SYG SC (09:29)
[2017-05-13] MEDS: DULOXETINE 30 MG CAP DR PO (09:30)
[2017-05-13] MEDS: BACLOFEN 10 MG TAB PO ×4 (09:30→22:52)
[2017-05-13] MEDS: NICOTINE (21 MG/24 HR) PATCH TRANSDERM (09:30)
[2017-05-13] MEDS: AMIKACIN 1,000 MG in SOD CHLORIDE 0.9% 100 ML IVPB (17:27)
[2017-05-13] MEDS: SOD CHLORIDE 0.9% 1,000 ML IV (19:20)
[2017-05-13] MEDS: traZODone 100 MG TAB PO (22:52)
[2017-05-14] MEDS: ALPRAZOLAM 0.5 MG TAB PO ×4 (00:29→17:56)
[2017-05-14] MEDS: METHADONE (1 MG/ML 5 ML PO UD SYG) PO ×4 (00:30→17:56)
[2017-05-14] MEDS: HYDROmorphONE 0.5 MG/0.5 ML SYG IV ×5 (03:19→23:28)
[2017-05-14 05:32] LABS: ADD MAN DIFF? NO
[2017-05-14 05:35] LABS: WHITE BLOOD COUNT 5.9 10^3/ul (4.8-10.8)
[2017-05-14 05:35] LABS: BASOPHILS % 0.3 % (0.0-2.0); EOSINOPHILS # 0.1 10^3/ul (0.0-0.5); EOSINOPHILS % 1.7 % (0.0-7.0); LYMPHOCYTES # 1.5 10^3/ul (0.8-2.9); LYMPHOCYTES % 26.2 % (15.0-51.0); MEAN CORPUSCULAR HGB CONC 31.6 g/dl (32.0-37.0); MEAN CORPUSCULAR VOLUME 82.4 fl (82.0-101.0); MEAN PLATELET VOLUME 10.5 fl (7.4-10.4); MONOCYTE # 0.5 10^3/ul (0.3-0.9); NEUTROPHIL # 3.7 10^3/ul (1.6-7.5); NEUTROPHILS % 63.6 % (39.0-77.0); PLATELET COUNT 194 10^3/UL (140-415); RED BLOOD COUNT 4.61 10^6/ul (4.70-6.10); RED CELL DISTRIBUTION WIDTH 16.8 % (11.5-14.5)
[2017-05-14 06:06] LABS: ALBUMIN 3.7 g/dl (3.3-4.9); ANION GAP 14 (8-16); BLOOD UREA NITROGEN 15 mg/dl (7-20); CARBON DIOXIDE 27 mmol/L (21-31); CHLORIDE 106 mmol/L (97-110); GLUCOSE 123 mg/dl (70-220); MAGNESIUM 1.8 mg/dl (1.7-2.5); PHOSPHORUS 3.2 mg/dl (2.5-4.9); POTASSIUM 4.1 mmol/L (3.5-5.1); SODIUM 143 mmol/L (135-144)
[2017-05-14] MEDS: ENOXAPARIN 40 MG/0.4 ML SYG SC (08:54)
[2017-05-14] MEDS: NICOTINE (21 MG/24 HR) PATCH TRANSDERM (08:59)
[2017-05-14] MEDS: BACLOFEN 10 MG TAB PO ×4 (08:59→20:54)
[2017-05-14] MEDS: DULOXETINE 30 MG CAP DR PO (08:59)
[2017-05-14] MEDS: GABAPENTIN 300 MG CAP PO ×3 (08:59→20:54)
[2017-05-14] MEDS: COLLAGENASE 30 GM TUBE TOP (09:00)
[2017-05-14] MEDS: SOD CHLORIDE 0.9% 1,000 ML IV (15:30)
[2017-05-14] MEDS: AMIKACIN 1,000 MG in SOD CHLORIDE 0.9% 100 ML IVPB (17:55)
[2017-05-14] MEDS: traZODone 100 MG TAB PO (20:54)
[2017-05-15] MEDS: METHADONE (1 MG/ML 5 ML PO UD SYG) PO ×4 (01:23→18:08)
[2017-05-15] MEDS: ALPRAZOLAM 0.5 MG TAB PO ×4 (01:24→18:07)
[2017-05-15] MEDS: HYDROmorphONE 0.5 MG/0.5 ML SYG IV ×8 (03:49→22:54)
[2017-05-15] MEDS: SOD CHLORIDE 0.9% 1,000 ML IV (05:54)
[2017-05-15] MEDS: DULOXETINE 30 MG CAP DR PO (09:37)
[2017-05-15] MEDS: BACLOFEN 10 MG TAB PO ×4 (09:37→21:03)
[2017-05-15] MEDS: GABAPENTIN 300 MG CAP PO ×3 (09:38→21:03)
[2017-05-15] MEDS: ENOXAPARIN 40 MG/0.4 ML SYG SC (09:39)
[2017-05-15] MEDS: NICOTINE (21 MG/24 HR) PATCH TRANSDERM (09:40)
[2017-05-15] MEDS: COLLAGENASE 30 GM TUBE TOP (16:32)
[2017-05-15] MEDS: AMIKACIN 1,000 MG in SOD CHLORIDE 0.9% 100 ML IVPB (18:35)
[2017-05-15] MEDS: traZODone 100 MG TAB PO (21:03)
[2017-05-16] MEDS: ALPRAZOLAM 0.5 MG TAB PO ×4 (00:16→17:37)
[2017-05-16] MEDS: METHADONE (1 MG/ML 5 ML PO UD SYG) PO ×4 (00:17→17:37)
[2017-05-16] MEDS: HYDROmorphONE 0.5 MG/0.5 ML SYG IV ×6 (02:08→22:53)
[2017-05-16] MEDS: SOD CHLORIDE 0.9% 1,000 ML IV (05:34)
[2017-05-16] MEDS: GABAPENTIN 300 MG CAP PO ×3 (10:07→21:32)
[2017-05-16] MEDS: BACLOFEN 10 MG TAB PO ×4 (10:07→21:32)
[2017-05-16] MEDS: NICOTINE (21 MG/24 HR) PATCH TRANSDERM (10:07)
[2017-05-16] MEDS: DULOXETINE 30 MG CAP DR PO (10:09)
[2017-05-16] MEDS: ENOXAPARIN 40 MG/0.4 ML SYG SC (10:18)
[2017-05-16] MEDS: OXYCODONE/ACETAMINOPHEN (10/325) TAB PO (13:21)
[2017-05-16] MEDS: AMIKACIN 1,000 MG in SOD CHLORIDE 0.9% 100 ML IVPB (17:38)
[2017-05-16] MEDS: traZODone 100 MG TAB PO (21:32)
[2017-05-16] MEDS: COLLAGENASE 30 GM TUBE TOP (21:32)
[2017-05-17] MEDS: ALPRAZOLAM 0.5 MG TAB PO ×4 (00:24→16:54)
[2017-05-17] MEDS: METHADONE (1 MG/ML 5 ML PO UD SYG) PO ×4 (00:24→18:30)
[2017-05-17] MEDS: HYDROmorphONE 0.5 MG/0.5 ML SYG IV ×6 (03:08→18:29)
[2017-05-17 06:32] LABS: ADD MAN DIFF? NO
[2017-05-17 06:43] LABS: BASOPHILS % 0.6 % (0.0-2.0); EOSINOPHILS # 0.2 10^3/ul (0.0-0.5); EOSINOPHILS % 3.7 % (0.0-7.0); HEMATOCRIT 35.4 % (42.0-52.0); HEMOGLOBIN 11.3 g/dl (14.0-18.0); LYMPHOCYTES # 2.3 10^3/ul (0.8-2.9); LYMPHOCYTES % 41.5 % (15.0-51.0); MEAN CORPUSCULAR HEMOGLOBIN 26.3 pg (29.0-33.0); MEAN CORPUSCULAR HGB CONC 31.9 g/dl (32.0-37.0); MEAN CORPUSCULAR VOLUME 82.5 fl (82.0-101.0); MEAN PLATELET VOLUME 11.1 fl (7.4-10.4); MONOCYTE # 0.4 10^3/ul (0.3-0.9); MONOCYTES % 6.4 % (0.0-11.0); NEUTROPHIL # 2.6 10^3/ul (1.6-7.5); NEUTROPHILS % 47.4 % (39.0-77.0); PLATELET COUNT 176 10^3/UL (140-415); RED BLOOD COUNT 4.29 10^6/ul (4.70-6.10); RED CELL DISTRIBUTION WIDTH 16.8 % (11.5-14.5)
[2017-05-17 06:43] LABS: WHITE BLOOD COUNT 5.4 10^3/ul (4.8-10.8)
[2017-05-17 07:07] LABS: ANION GAP 15 (8-16); BLOOD UREA NITROGEN 25 mg/dl (7-20); CALCIUM 8.5 mg/dl (8.4-10.2); CARBON DIOXIDE 27 mmol/L (21-31); CHLORIDE 106 mmol/L (97-110); CREATININE 0.89 mg/dl (0.61-1.24); GLUCOSE 80 mg/dl (70-220); PHOSPHORUS 3.8 mg/dl (2.5-4.9); POTASSIUM 4.4 mmol/L (3.5-5.1); SODIUM 144 mmol/L (135-144)
[2017-05-17] MEDS: DULOXETINE 30 MG CAP DR PO (10:34)
[2017-05-17] MEDS: BACLOFEN 10 MG TAB PO ×4 (10:35→20:39)
[2017-05-17] MEDS: ENOXAPARIN 40 MG/0.4 ML SYG SC (10:36)
[2017-05-17] MEDS: GABAPENTIN 300 MG CAP PO ×3 (10:36→20:39)
[2017-05-17] MEDS: NICOTINE (21 MG/24 HR) PATCH TRANSDERM (10:37)
[2017-05-17] MEDS: OXYCODONE/ACETAMINOPHEN (10/325) TAB PO (18:30)
[2017-05-17] MEDS: AMIKACIN 1,000 MG in SOD CHLORIDE 0.9% 100 ML IVPB (18:31)
[2017-05-17] MEDS: COLLAGENASE 30 GM TUBE TOP (18:31)
[2017-05-17] MEDS: traZODone 100 MG TAB PO (20:39)
[2017-05-18] MEDS: ALPRAZOLAM 0.5 MG TAB PO ×4 (00:11→17:57)
[2017-05-18] MEDS: METHADONE (1 MG/ML 5 ML PO UD SYG) PO ×4 (00:14→17:58)
[2017-05-18] MEDS: HYDROmorphONE 0.5 MG/0.5 ML SYG IV ×3 (01:00→20:48)
[2017-05-18] MEDS ORDERED: [UNRECOGNIZED DRUG - REMARK] XX (04:30)
[2017-05-18] MEDS: GABAPENTIN 300 MG CAP PO ×3 (10:58→20:47)
[2017-05-18] MEDS: DULOXETINE 30 MG CAP DR PO (10:58)
[2017-05-18] MEDS: NICOTINE (21 MG/24 HR) PATCH TRANSDERM (10:58)
[2017-05-18] MEDS: BACLOFEN 10 MG TAB PO ×4 (10:59→20:48)
[2017-05-18] MEDS: ENOXAPARIN 40 MG/0.4 ML SYG SC (10:59)
[2017-05-18] MEDS: COLLAGENASE 30 GM TUBE TOP (11:08)
[2017-05-18] MEDS: AMIKACIN 1,000 MG in SOD CHLORIDE 0.9% 100 ML IVPB (17:58)
[2017-05-18] MEDS: traZODone 100 MG TAB PO (20:47)
[2017-05-19] MEDS: METHADONE (1 MG/ML 5 ML PO UD SYG) PO ×5 (00:17→23:50)
[2017-05-19] MEDS: ALPRAZOLAM 0.5 MG TAB PO ×5 (00:17→23:50)
[2017-05-19] MEDS: HYDROmorphONE 0.5 MG/0.5 ML SYG IV ×3 (08:00→19:00)
[2017-05-19] MEDS: SOD CHLORIDE 0.9% 1,000 ML IV ×3 (08:51→17:30)
[2017-05-19] MEDS: BACLOFEN 10 MG TAB PO ×4 (08:52→20:55)
[2017-05-19] MEDS: DULOXETINE 30 MG CAP DR PO (08:52)
[2017-05-19] MEDS: GABAPENTIN 300 MG CAP PO ×3 (08:52→20:55)
[2017-05-19] MEDS: ENOXAPARIN 40 MG/0.4 ML SYG SC (08:58)
[2017-05-19] MEDS: NICOTINE (21 MG/24 HR) PATCH TRANSDERM (08:59)
[2017-05-19] MEDS: COLLAGENASE 30 GM TUBE TOP (09:00)
[2017-05-19] MEDS ORDERED: VITAMIN A & D 5 GM OINT PACKET TOP (10:10)
[2017-05-19] MEDS: AMIKACIN 1,000 MG in SOD CHLORIDE 0.9% 100 ML IVPB (17:30)
[2017-05-19] MEDS: traZODone 100 MG TAB PO (20:55)
[2017-05-20] MEDS: HYDROmorphONE 0.5 MG/0.5 ML SYG IV ×5 (02:59→18:52)
[2017-05-20] MEDS: SOD CHLORIDE 0.9% 1,000 ML IV ×3 (04:51→16:43)
[2017-05-20 06:04] LABS: CREATININE 0.85 mg/dl (0.61-1.24)
[2017-05-20 06:04] LABS: BLOOD UREA NITROGEN 21 mg/dl (7-20)
[2017-05-20] MEDS: ALPRAZOLAM 0.5 MG TAB PO ×3 (06:20→17:05)
[2017-05-20] MEDS: METHADONE (1 MG/ML 5 ML PO UD SYG) PO ×3 (06:20→17:05)
[2017-05-20] MEDS: BACLOFEN 10 MG TAB PO ×4 (08:45→21:22)
[2017-05-20] MEDS: DULOXETINE 30 MG CAP DR PO (08:45)
[2017-05-20] MEDS: GABAPENTIN 300 MG CAP PO ×3 (08:46→21:23)
[2017-05-20] MEDS: NICOTINE (21 MG/24 HR) PATCH TRANSDERM (08:46)
[2017-05-20] MEDS: ENOXAPARIN 40 MG/0.4 ML SYG SC (08:48)
[2017-05-20] MEDS: COLLAGENASE 30 GM TUBE TOP (08:49)
[2017-05-20] MEDS: AMIKACIN 1,000 MG in SOD CHLORIDE 0.9% 100 ML IVPB (17:05)
[2017-05-20] MEDS: traZODone 100 MG TAB PO (21:23)
[2017-05-21] MEDS: SOD CHLORIDE 0.9% 1,000 ML IV ×3 (01:00→14:16)
[2017-05-21] MEDS: METHADONE (1 MG/ML 5 ML PO UD SYG) PO ×4 (01:22→17:34)
[2017-05-21] MEDS: ALPRAZOLAM 0.5 MG TAB PO ×4 (01:22→17:33)
[2017-05-21] MEDS: HYDROmorphONE 0.5 MG/0.5 ML SYG IV ×6 (04:11→22:16)
[2017-05-21] MEDS: GABAPENTIN 300 MG CAP PO ×3 (11:28→21:09)
[2017-05-21] MEDS: NICOTINE (21 MG/24 HR) PATCH TRANSDERM (11:28)
[2017-05-21] MEDS: DULOXETINE 30 MG CAP DR PO (11:28)
[2017-05-21] MEDS: BACLOFEN 10 MG TAB PO ×4 (11:28→21:09)
[2017-05-21] MEDS: ENOXAPARIN 40 MG/0.4 ML SYG SC (11:35)
[2017-05-21] MEDS: COLLAGENASE 30 GM TUBE TOP (11:36)
[2017-05-21] MEDS: hydrALAzine 20 MG INJ IV (14:19)
[2017-05-21] MEDS: AMIKACIN 1,000 MG in SOD CHLORIDE 0.9% 100 ML IVPB (17:34)
[2017-05-21] MEDS: traZODone 100 MG TAB PO (21:09)
[2017-05-22] MEDS: METHADONE (1 MG/ML 5 ML PO UD SYG) PO ×4 (00:20→17:04)
[2017-05-22] MEDS: ALPRAZOLAM 0.5 MG TAB PO ×4 (00:20→17:04)
[2017-05-22] MEDS: SOD CHLORIDE 0.9% 1,000 ML IV ×3 (01:39→23:08)
[2017-05-22] MEDS: HYDROmorphONE 0.5 MG/0.5 ML SYG IV ×5 (03:21→21:31)
[2017-05-22 05:31] LABS: ADD MAN DIFF? NO
[2017-05-22 05:34] LABS: WHITE BLOOD COUNT 5.9 10^3/ul (4.8-10.8)
[2017-05-22 05:34] LABS: BASOPHILS % 0.3 % (0.0-2.0); EOSINOPHILS # 0.3 10^3/ul (0.0-0.5); EOSINOPHILS % 4.4 % (0.0-7.0); HEMATOCRIT 36.2 % (42.0-52.0); HEMOGLOBIN 11.6 g/dl (14.0-18.0); LYMPHOCYTES # 1.8 10^3/ul (0.8-2.9); LYMPHOCYTES % 30.9 % (15.0-51.0); MEAN CORPUSCULAR HEMOGLOBIN 26.3 pg (29.0-33.0); MEAN CORPUSCULAR VOLUME 82.1 fl (82.0-101.0); MEAN PLATELET VOLUME 11.1 fl (7.4-10.4); MONOCYTE # 0.4 10^3/ul (0.3-0.9); NEUTROPHIL # 3.4 10^3/ul (1.6-7.5); NEUTROPHILS % 57.2 % (39.0-77.0); PLATELET COUNT 169 10^3/UL (140-415); RED BLOOD COUNT 4.41 10^6/ul (4.70-6.10); RED CELL DISTRIBUTION WIDTH 15.9 % (11.5-14.5)
[2017-05-22 06:02] LABS: ANION GAP 14 (8-16); BLOOD UREA NITROGEN 21 mg/dl (7-20); CALCIUM 8.8 mg/dl (8.4-10.2); CARBON DIOXIDE 31 mmol/L (21-31); CHLORIDE 105 mmol/L (97-110); CREATININE 0.83 mg/dl (0.61-1.24); GLUCOSE 85 mg/dl (70-220); MAGNESIUM 1.7 mg/dl (1.7-2.5); PHOSPHORUS 4.3 mg/dl (2.5-4.9); POTASSIUM 4.5 mmol/L (3.5-5.1); SODIUM 145 mmol/L (135-144)
[2017-05-22] MEDS: NICOTINE (21 MG/24 HR) PATCH TRANSDERM (09:24)
[2017-05-22] MEDS: ENOXAPARIN 40 MG/0.4 ML SYG SC (09:24)
[2017-05-22] MEDS: GABAPENTIN 300 MG CAP PO ×3 (09:25→22:28)
[2017-05-22] MEDS: BACLOFEN 10 MG TAB PO ×4 (09:25→21:30)
[2017-05-22] MEDS: DULOXETINE 30 MG CAP DR PO (09:25)
[2017-05-22] MEDS: COLLAGENASE 30 GM TUBE TOP (09:26)
[2017-05-22] MEDS: OXYCODONE/ACETAMINOPHEN (10/325) TAB PO (12:19)
[2017-05-22] MEDS: traZODone 100 MG TAB PO (22:28)
[2017-05-23] MEDS: ALPRAZOLAM 0.5 MG TAB PO ×4 (00:22→18:39)
[2017-05-23] MEDS: METHADONE (1 MG/ML 5 ML PO UD SYG) PO ×4 (00:22→18:38)
[2017-05-23] MEDS: HYDROmorphONE 0.5 MG/0.5 ML SYG IV ×6 (05:13→20:45)
[2017-05-23] MEDS: GABAPENTIN 300 MG CAP PO ×3 (08:03→21:34)
[2017-05-23] MEDS: ENOXAPARIN 40 MG/0.4 ML SYG SC (08:04)
[2017-05-23] MEDS: BACLOFEN 10 MG TAB PO ×4 (08:05→20:45)
[2017-05-23] MEDS: DULOXETINE 30 MG CAP DR PO (08:05)
[2017-05-23] MEDS: COLLAGENASE 30 GM TUBE TOP (08:08)
[2017-05-23] MEDS: NICOTINE (21 MG/24 HR) PATCH TRANSDERM (08:08)
[2017-05-23] MEDS: SOD CHLORIDE 0.9% 1,000 ML IV ×3 (09:42→19:42)
[2017-05-23] MEDS ORDERED: VITAMIN A & D 5 GM OINT PACKET TOP (10:12)
[2017-05-23 11:25] LABS: ADD MAN DIFF? NO
[2017-05-23 11:28] LABS: BASOPHILS % 0.4 % (0.0-2.0); EOSINOPHILS # 0.3 10^3/ul (0.0-0.5); EOSINOPHILS % 3.9 % (0.0-7.0); HEMATOCRIT 38.6 % (42.0-52.0); HEMOGLOBIN 12.3 g/dl (14.0-18.0); LYMPHOCYTES # 2.1 10^3/ul (0.8-2.9); LYMPHOCYTES % 30.4 % (15.0-51.0); MEAN CORPUSCULAR HEMOGLOBIN 26.6 pg (29.0-33.0); MEAN CORPUSCULAR HGB CONC 31.9 g/dl (32.0-37.0); MEAN CORPUSCULAR VOLUME 83.4 fl (82.0-101.0); MONOCYTE # 0.5 10^3/ul (0.3-0.9); MONOCYTES % 6.8 % (0.0-11.0); NEUTROPHIL # 3.9 10^3/ul (1.6-7.5); NEUTROPHILS % 58.2 % (39.0-77.0); PLATELET COUNT 188 10^3/UL (140-415); RED BLOOD COUNT 4.63 10^6/ul (4.70-6.10); RED CELL DISTRIBUTION WIDTH 15.6 % (11.5-14.5)
[2017-05-23 11:28] LABS: WHITE BLOOD COUNT 6.8 10^3/ul (4.8-10.8)
[2017-05-23 11:47] LABS: PHOSPHORUS 4.2 mg/dl (2.5-4.9)
[2017-05-23 11:47] LABS: MAGNESIUM 1.8 mg/dl (1.7-2.5)
[2017-05-23 11:51] LABS: ANION GAP 15 (8-16); BLOOD UREA NITROGEN 19 mg/dl (7-20); CARBON DIOXIDE 30 mmol/L (21-31); CHLORIDE 103 mmol/L (97-110); CREATININE 0.83 mg/dl (0.61-1.24); GLUCOSE 64 mg/dl (70-220); POTASSIUM 4.8 mmol/L (3.5-5.1); SODIUM 143 mmol/L (135-144)
[2017-05-23] MEDS: traZODone 100 MG TAB PO (21:34)
[2017-05-24] MEDS: METHADONE (1 MG/ML 5 ML PO UD SYG) PO ×4 (00:12→17:30)
[2017-05-24] MEDS: ALPRAZOLAM 0.5 MG TAB PO ×4 (00:12→17:29)
[2017-05-24] MEDS: SOD CHLORIDE 0.9% 1,000 ML IV ×3 (04:48→17:30)
[2017-05-24] MEDS: HYDROmorphONE 0.5 MG/0.5 ML SYG IV ×4 (07:00→19:02)
[2017-05-24] MEDS: COLLAGENASE 30 GM TUBE TOP (09:00)
[2017-05-24] MEDS: DULOXETINE 30 MG CAP DR PO (09:01)
[2017-05-24] MEDS: GABAPENTIN 300 MG CAP PO ×3 (09:01→20:37)
[2017-05-24] MEDS: BACLOFEN 10 MG TAB PO ×4 (09:01→20:37)
[2017-05-24] MEDS: NICOTINE (21 MG/24 HR) PATCH TRANSDERM (09:02)
[2017-05-24] MEDS: ENOXAPARIN 40 MG/0.4 ML SYG SC (09:02)
[2017-05-24] MEDS: traZODone 100 MG TAB PO (20:37)
[2017-05-25] MEDS: METHADONE (1 MG/ML 5 ML PO UD SYG) PO ×4 (00:08→17:54)
[2017-05-25] MEDS: ALPRAZOLAM 0.5 MG TAB PO ×4 (00:08→17:54)
[2017-05-25] MEDS: SOD CHLORIDE 0.9% 1,000 ML IV ×3 (01:13→23:01)
[2017-05-25] MEDS: HYDROmorphONE 0.5 MG/0.5 ML SYG IV ×4 (01:17→21:07)
[2017-05-25] MEDS: DULOXETINE 30 MG CAP DR PO (08:28)
[2017-05-25] MEDS: BACLOFEN 10 MG TAB PO ×4 (08:29→21:07)
[2017-05-25] MEDS: GABAPENTIN 300 MG CAP PO ×3 (08:29→21:07)
[2017-05-25] MEDS: NICOTINE (21 MG/24 HR) PATCH TRANSDERM (08:30)
[2017-05-25] MEDS: ENOXAPARIN 40 MG/0.4 ML SYG SC (08:30)
[2017-05-25] MEDS: COLLAGENASE 30 GM TUBE TOP (09:01)
[2017-05-25] MEDS: traZODone 100 MG TAB PO (21:07)
[2017-05-26] MEDS: SOD CHLORIDE 0.9% 1,000 ML IV ×3 (01:00→20:32)
[2017-05-26] MEDS: METHADONE (1 MG/ML 5 ML PO UD SYG) PO ×4 (01:04→17:41)
[2017-05-26] MEDS: ALPRAZOLAM 0.5 MG TAB PO ×4 (01:04→17:41)
[2017-05-26] MEDS: HYDROmorphONE 0.5 MG/0.5 ML SYG IV ×7 (02:51→23:39)
[2017-05-26] MEDS: COLLAGENASE 30 GM TUBE TOP ×2 (06:26→08:08)
[2017-05-26] MEDS: GABAPENTIN 300 MG CAP PO ×3 (08:06→20:34)
[2017-05-26] MEDS: BACLOFEN 10 MG TAB PO ×4 (08:06→20:33)
[2017-05-26] MEDS: DULOXETINE 30 MG CAP DR PO (08:06)
[2017-05-26] MEDS: ENOXAPARIN 40 MG/0.4 ML SYG SC (08:07)
[2017-05-26] MEDS: NICOTINE (21 MG/24 HR) PATCH TRANSDERM (08:08)
[2017-05-26] MEDS: OXYCODONE/ACETAMINOPHEN (10/325) TAB PO (16:49)
[2017-05-26] MEDS: traZODone 100 MG TAB PO (20:33)
[2017-05-27] MEDS: ALPRAZOLAM 0.5 MG TAB PO ×4 (00:36→18:15)
[2017-05-27] MEDS: METHADONE (1 MG/ML 5 ML PO UD SYG) PO ×4 (00:36→18:15)
[2017-05-27] MEDS: SOD CHLORIDE 0.9% 500 ML IV ×3 (03:14→05:22)
[2017-05-27] MEDS: SOD CHLORIDE 0.9% 1,000 ML IV ×4 (03:54→19:51)
[2017-05-27 06:34] LABS: ANION GAP 16 (8-16); BLOOD UREA NITROGEN 34 mg/dl (7-20); CARBON DIOXIDE 30 mmol/L (21-31); CHLORIDE 106 mmol/L (97-110); CREATININE 0.84 mg/dl (0.61-1.24); GLUCOSE 92 mg/dl (70-220); LACTATE DEHYDROGENASE 293 IU/L (313-618); MAGNESIUM 1.8 mg/dl (1.7-2.5); SODIUM 147 mmol/L (135-144)
[2017-05-27 06:39] LABS: ADD MAN DIFF? NO
[2017-05-27 06:41] LABS: WHITE BLOOD COUNT 6.2 10^3/ul (4.8-10.8)
[2017-05-27 06:41] LABS: ADD UMIC YES; BASOPHILS % 0.3 % (0.0-2.0); EOSINOPHILS # 0.4 10^3/ul (0.0-0.5); EOSINOPHILS % 5.8 % (0.0-7.0); HEMATOCRIT 37.8 % (42.0-52.0); HEMOGLOBIN 11.9 g/dl (14.0-18.0); LYMPHOCYTES # 2.4 10^3/ul (0.8-2.9); LYMPHOCYTES % 38.5 % (15.0-51.0); MEAN CORPUSCULAR HEMOGLOBIN 26.4 pg (29.0-33.0); MEAN CORPUSCULAR HGB CONC 31.5 g/dl (32.0-37.0); MEAN CORPUSCULAR VOLUME 83.8 fl (82.0-101.0); MEAN PLATELET VOLUME 11.3 fl (7.4-10.4); MONOCYTE # 0.4 10^3/ul (0.3-0.9); MONOCYTES % 5.9 % (0.0-11.0); NEUTROPHIL # 3.1 10^3/ul (1.6-7.5); NEUTROPHILS % 49.3 % (39.0-77.0); PLATELET COUNT 199 10^3/UL (140-415); RED BLOOD COUNT 4.51 10^6/ul (4.70-6.10); RED CELL DISTRIBUTION WIDTH 15.3 % (11.5-14.5); UR ASCORBIC ACID 40 mg/dL (NEGATIVE); UR BILIRUBIN (Dip) NEGATIVE (NEGATIVE); UR BLOOD (Dip) NEGATIVE (NEGATIVE); UR CLARITY CLEAR (CLEAR); UR COLOR STRAW (YELLOW); UR GLUCOSE (Dip) NEGATIVE (NEGATIVE); UR KETONES (Dip) NEGATIVE (NEGATIVE); UR LEUKOCYTE ESTERASE (Dip) 2+ Leu/ul (NEGATIVE); UR NITRITE (Dip) NEGATIVE (NEGATIVE); UR RBC 1 /HPF (0-5); UR SPECIFIC GRAVITY (Dip) 1.012 (1.003-1.030); UR TOTAL PROTEIN (Dip) NEGATIVE (NEGATIVE); UR UROBILINOGEN (Dip) NEGATIVE (NEGATIVE); UR WBC 6 /HPF (0-5)
[2017-05-27 06:47] LABS: TROPONIN-I < 0.012 ng/ml (0.00-0.12)
[2017-05-27] MEDS: GABAPENTIN 300 MG CAP PO (09:00)
[2017-05-27] MEDS: DULOXETINE 30 MG CAP DR PO (09:33)
[2017-05-27] MEDS: BACLOFEN 10 MG TAB PO ×4 (09:33→20:01)
[2017-05-27] MEDS: NICOTINE (21 MG/24 HR) PATCH TRANSDERM (09:34)
[2017-05-27] MEDS: COLLAGENASE 30 GM TUBE TOP (09:34)
[2017-05-27] MEDS: ENOXAPARIN 40 MG/0.4 ML SYG SC (09:35)
[2017-05-27] MEDS: ALBUTEROL 0.083% (NEB) 2.5 MG/3 ML AMP HHN (10:46)
[2017-05-27] MEDS: HYDROmorphONE 0.5 MG/0.5 ML SYG IV ×4 (13:30→22:51)
[2017-05-27] MEDS: traZODone 100 MG TAB PO (20:01)
[2017-05-28] MEDS: ALPRAZOLAM 0.5 MG TAB PO ×4 (00:14→17:04)
[2017-05-28] MEDS: METHADONE (1 MG/ML 5 ML PO UD SYG) PO ×4 (00:15→17:04)
[2017-05-28] MEDS: HYDROmorphONE 0.5 MG/0.5 ML SYG IV ×7 (01:50→21:58)
[2017-05-28] MEDS: SOD CHLORIDE 0.9% 1,000 ML IV ×2 (05:14→15:28)
[2017-05-28] MEDS: BACLOFEN 10 MG TAB PO ×4 (08:27→21:47)
[2017-05-28] MEDS: NICOTINE (21 MG/24 HR) PATCH TRANSDERM (08:27)
[2017-05-28] MEDS: DULOXETINE 30 MG CAP DR PO (08:27)
[2017-05-28] MEDS: ENOXAPARIN 40 MG/0.4 ML SYG SC (08:27)
[2017-05-28] MEDS: DOCUSATE SODIUM 100 MG CAP PO ×2 (08:29→21:00)
[2017-05-28] MEDS: POLYETHYLENE GLYCOL 17 GM PACKET PO (09:00)
[2017-05-28] MEDS: COLLAGENASE 30 GM TUBE TOP (09:00)
[2017-05-28] MEDS: traZODone 100 MG TAB PO (21:45)
[2017-05-29] MEDS: ALPRAZOLAM 0.5 MG TAB PO ×4 (00:22→17:18)
[2017-05-29] MEDS: METHADONE (1 MG/ML 5 ML PO UD SYG) PO ×4 (00:23→17:18)
[2017-05-29] MEDS: SOD CHLORIDE 0.9% 1,000 ML IV ×2 (00:28→11:23)
[2017-05-29] MEDS: HYDROmorphONE 0.5 MG/0.5 ML SYG IV ×5 (03:33→20:12)
[2017-05-29 06:11] LABS: ADD MAN DIFF? NO
[2017-05-29 06:21] LABS: BASOPHILS % 0.4 % (0.0-2.0); EOSINOPHILS # 0.2 10^3/ul (0.0-0.5); EOSINOPHILS % 4.5 % (0.0-7.0); HEMATOCRIT 37.3 % (42.0-52.0); HEMOGLOBIN 11.9 g/dl (14.0-18.0); LYMPHOCYTES # 1.7 10^3/ul (0.8-2.9); LYMPHOCYTES % 31.2 % (15.0-51.0); MEAN CORPUSCULAR HEMOGLOBIN 26.1 pg (29.0-33.0); MEAN CORPUSCULAR HGB CONC 31.9 g/dl (32.0-37.0); MEAN CORPUSCULAR VOLUME 81.8 fl (82.0-101.0); MEAN PLATELET VOLUME 11.7 fl (7.4-10.4); MONOCYTE # 0.3 10^3/ul (0.3-0.9); MONOCYTES % 5.4 % (0.0-11.0); NEUTROPHIL # 3.1 10^3/ul (1.6-7.5); NEUTROPHILS % 58.3 % (39.0-77.0); PLATELET COUNT 210 10^3/UL (140-415); RED BLOOD COUNT 4.56 10^6/ul (4.70-6.10); RED CELL DISTRIBUTION WIDTH 15.3 % (11.5-14.5)
[2017-05-29 06:21] LABS: WHITE BLOOD COUNT 5.4 10^3/ul (4.8-10.8)
[2017-05-29 06:42] LABS: ANION GAP 14 (8-16); BLOOD UREA NITROGEN 15 mg/dl (7-20); CALCIUM 9.1 mg/dl (8.4-10.2); CARBON DIOXIDE 29 mmol/L (21-31); CHLORIDE 107 mmol/L (97-110); CREATININE 0.77 mg/dl (0.61-1.24); GLUCOSE 87 mg/dl (70-220); POTASSIUM 4.8 mmol/L (3.5-5.1); SODIUM 145 mmol/L (135-144)
[2017-05-29 07:14] LABS: PHOSPHORUS 4.4 mg/dl (2.5-4.9)
[2017-05-29 07:14] LABS: MAGNESIUM 1.7 mg/dl (1.7-2.5)
[2017-05-29] MEDS: BACLOFEN 10 MG TAB PO ×4 (08:36→21:01)
[2017-05-29] MEDS: DOCUSATE SODIUM 100 MG CAP PO ×3 (08:36→21:01)
[2017-05-29] MEDS: DULOXETINE 30 MG CAP DR PO (08:36)
[2017-05-29] MEDS: ENOXAPARIN 40 MG/0.4 ML SYG SC (08:37)
[2017-05-29] MEDS: NICOTINE (21 MG/24 HR) PATCH TRANSDERM (08:38)
[2017-05-29] MEDS: COLLAGENASE 30 GM TUBE TOP (08:38)
[2017-05-29] MEDS: POLYETHYLENE GLYCOL 17 GM PACKET PO (08:38)
[2017-05-29] MEDS: traZODone 100 MG TAB PO (21:01)
[2017-05-30] MEDS: ALPRAZOLAM 0.5 MG TAB PO ×5 (00:19→23:47)
[2017-05-30] MEDS: METHADONE (1 MG/ML 5 ML PO UD SYG) PO ×5 (00:19→23:46)
[2017-05-30] MEDS: HYDROmorphONE 0.5 MG/0.5 ML SYG IV ×6 (03:11→21:27)
[2017-05-30] MEDS: SOD CHLORIDE 0.9% 1,000 ML IV ×3 (06:19→17:01)
[2017-05-30] MEDS: COLLAGENASE 30 GM TUBE TOP (09:00)
[2017-05-30] MEDS: ENOXAPARIN 40 MG/0.4 ML SYG SC (09:48)
[2017-05-30] MEDS: DOCUSATE SODIUM 100 MG CAP PO ×2 (09:49→20:26)
[2017-05-30] MEDS: POLYETHYLENE GLYCOL 17 GM PACKET PO (09:49)
[2017-05-30] MEDS: DULOXETINE 30 MG CAP DR PO (09:49)
[2017-05-30] MEDS: BACLOFEN 10 MG TAB PO ×4 (09:49→20:25)
[2017-05-30] MEDS: NICOTINE (21 MG/24 HR) PATCH TRANSDERM (09:50)
[2017-05-30] MEDS: traZODone 100 MG TAB PO (20:25)
[2017-05-30] MEDS: hydrALAzine 20 MG INJ IV (20:26)
[2017-05-31] MEDS: ALPRAZOLAM 0.5 MG TAB PO ×3 (05:24→17:07)
[2017-05-31] MEDS: SOD CHLORIDE 0.9% 1,000 ML IV ×3 (05:24→17:09)
[2017-05-31] MEDS: HYDROmorphONE 0.5 MG/0.5 ML SYG IV ×5 (05:30→22:17)
[2017-05-31] MEDS: METHADONE (1 MG/ML 5 ML PO UD SYG) PO ×3 (06:37→17:08)
[2017-05-31] MEDS: POLYETHYLENE GLYCOL 17 GM PACKET PO (09:00)
[2017-05-31] MEDS: BACLOFEN 10 MG TAB PO ×4 (09:22→22:16)
[2017-05-31] MEDS: DOCUSATE SODIUM 100 MG CAP PO ×2 (09:22→21:00)
[2017-05-31] MEDS: NICOTINE (21 MG/24 HR) PATCH TRANSDERM (09:22)
[2017-05-31] MEDS: DULOXETINE 30 MG CAP DR PO (09:22)
[2017-05-31] MEDS: ENOXAPARIN 40 MG/0.4 ML SYG SC (09:23)
[2017-05-31] MEDS: COLLAGENASE 30 GM TUBE TOP (09:24)
[2017-05-31] MEDS: traZODone 100 MG TAB PO (22:16)
[2017-06-01] MEDS: METHADONE (1 MG/ML 5 ML PO UD SYG) PO ×4 (00:09→17:29)
[2017-06-01] MEDS: ALPRAZOLAM 0.5 MG TAB PO ×4 (00:10→17:29)
[2017-06-01] MEDS: HYDROmorphONE 0.5 MG/0.5 ML SYG IV ×3 (05:12→14:33)
[2017-06-01] MEDS: SOD CHLORIDE 0.9% 1,000 ML IV ×2 (07:05→15:51)
[2017-06-01] MEDS: BACLOFEN 10 MG TAB PO ×4 (08:54→22:07)
[2017-06-01] MEDS: DULOXETINE 30 MG CAP DR PO (08:54)
[2017-06-01] MEDS: NICOTINE (21 MG/24 HR) PATCH TRANSDERM (08:55)
[2017-06-01] MEDS: DOCUSATE SODIUM 100 MG CAP PO ×2 (08:55→21:00)
[2017-06-01] MEDS: COLLAGENASE 30 GM TUBE TOP (08:55)
[2017-06-01] MEDS: POLYETHYLENE GLYCOL 17 GM PACKET PO (08:56)
[2017-06-01] MEDS: ENOXAPARIN 40 MG/0.4 ML SYG SC (08:56)
[2017-06-01] MEDS: SENNA TAB PO ×2 (09:30→21:00)
[2017-06-01] MEDS: HYDROmorphONE 2 MG/ML SYG IV ×2 (18:19→22:07)
[2017-06-01] MEDS: traZODone 100 MG TAB PO (22:07)
[2017-06-02] MEDS: METHADONE (1 MG/ML 5 ML PO UD SYG) PO ×4 (00:15→17:19)
[2017-06-02] MEDS: ALPRAZOLAM 0.5 MG TAB PO ×4 (00:15→17:19)
[2017-06-02] MEDS: SOD CHLORIDE 0.9% 1,000 ML IV ×2 (02:23→12:28)
[2017-06-02] MEDS: HYDROmorphONE 2 MG/ML SYG IV ×5 (03:58→20:46)
[2017-06-02 05:38] LABS: ADD MAN DIFF? NO
[2017-06-02 05:41] LABS: BASOPHILS % 0.4 % (0.0-2.0); EOSINOPHILS # 0.4 10^3/ul (0.0-0.5); EOSINOPHILS % 7.2 % (0.0-7.0); HEMATOCRIT 37.5 % (42.0-52.0); HEMOGLOBIN 11.8 g/dl (14.0-18.0); LYMPHOCYTES # 1.8 10^3/ul (0.8-2.9); LYMPHOCYTES % 36.8 % (15.0-51.0); MEAN CORPUSCULAR HEMOGLOBIN 26.4 pg (29.0-33.0); MEAN CORPUSCULAR HGB CONC 31.5 g/dl (32.0-37.0); MEAN CORPUSCULAR VOLUME 83.9 fl (82.0-101.0); MEAN PLATELET VOLUME 11.5 fl (7.4-10.4); MONOCYTE # 0.4 10^3/ul (0.3-0.9); MONOCYTES % 7.2 % (0.0-11.0); NEUTROPHIL # 2.4 10^3/ul (1.6-7.5); NEUTROPHILS % 48.2 % (39.0-77.0); PLATELET COUNT 160 10^3/UL (140-415); RED BLOOD COUNT 4.47 10^6/ul (4.70-6.10); RED CELL DISTRIBUTION WIDTH 15.2 % (11.5-14.5)
[2017-06-02 06:15] LABS: ANION GAP 16 (8-16); BLOOD UREA NITROGEN 16 mg/dl (7-20); CALCIUM 8.6 mg/dl (8.4-10.2); CARBON DIOXIDE 27 mmol/L (21-31); CHLORIDE 106 mmol/L (97-110); CREATININE 0.77 mg/dl (0.61-1.24); GLUCOSE 89 mg/dl (70-220); POTASSIUM 4.7 mmol/L (3.5-5.1); SODIUM 144 mmol/L (135-144)
[2017-06-02] MEDS: POLYETHYLENE GLYCOL 17 GM PACKET PO (09:00)
[2017-06-02] MEDS: DULOXETINE 30 MG CAP DR PO (09:55)
[2017-06-02] MEDS: DOCUSATE SODIUM 100 MG CAP PO ×2 (09:55→20:47)
[2017-06-02] MEDS: ENOXAPARIN 40 MG/0.4 ML SYG SC (09:55)
[2017-06-02] MEDS: SENNA TAB PO ×2 (09:55→20:47)
[2017-06-02] MEDS: BACLOFEN 10 MG TAB PO ×4 (09:55→20:46)
[2017-06-02] MEDS: NICOTINE (21 MG/24 HR) PATCH TRANSDERM (09:56)
[2017-06-02] MEDS: COLLAGENASE 30 GM TUBE TOP (09:56)
[2017-06-02] MEDS: traZODone 100 MG TAB PO (20:46)
[2017-06-03] MEDS: SOD CHLORIDE 0.9% 1,000 ML IV ×3 (00:43→21:50)
[2017-06-03] MEDS: ALPRAZOLAM 0.5 MG TAB PO ×4 (00:43→17:28)
[2017-06-03] MEDS: METHADONE (1 MG/ML 5 ML PO UD SYG) PO ×4 (00:43→17:28)
[2017-06-03] MEDS: HYDROmorphONE 2 MG/ML SYG IV ×7 (01:59→20:40)
[2017-06-03] MEDS: NICOTINE (21 MG/24 HR) PATCH TRANSDERM (08:22)
[2017-06-03] MEDS: DULOXETINE 30 MG CAP DR PO (08:23)
[2017-06-03] MEDS: ENOXAPARIN 40 MG/0.4 ML SYG SC (08:23)
[2017-06-03] MEDS: DOCUSATE SODIUM 100 MG CAP PO ×2 (08:25→20:41)
[2017-06-03] MEDS: BACLOFEN 10 MG TAB PO ×4 (08:25→20:40)
[2017-06-03] MEDS: POLYETHYLENE GLYCOL 17 GM PACKET PO (08:28)
[2017-06-03] MEDS: SENNA TAB PO ×2 (08:29→20:41)
[2017-06-03] MEDS: COLLAGENASE 30 GM TUBE TOP (14:00)
[2017-06-03] MEDS: traZODone 100 MG TAB PO (20:40)
[2017-06-04] MEDS: METHADONE (1 MG/ML 5 ML PO UD SYG) PO ×4 (00:45→17:03)
[2017-06-04] MEDS: ALPRAZOLAM 0.5 MG TAB PO ×4 (00:45→17:03)
[2017-06-04] MEDS: SOD CHLORIDE 0.9% 1,000 ML IV ×3 (05:00→20:43)
[2017-06-04] MEDS: HYDROmorphONE 2 MG/ML SYG IV ×4 (08:28→18:46)
[2017-06-04] MEDS: DULOXETINE 30 MG CAP DR PO (08:31)
[2017-06-04] MEDS: BACLOFEN 10 MG TAB PO ×4 (08:31→20:31)
[2017-06-04] MEDS: DOCUSATE SODIUM 100 MG CAP PO ×2 (08:31→20:34)
[2017-06-04] MEDS: NICOTINE (21 MG/24 HR) PATCH TRANSDERM (08:32)
[2017-06-04] MEDS: COLLAGENASE 30 GM TUBE TOP (08:32)
[2017-06-04] MEDS: ENOXAPARIN 40 MG/0.4 ML SYG SC (08:33)
[2017-06-04] MEDS: SENNA TAB PO ×2 (08:44→20:34)
[2017-06-04] MEDS: POLYETHYLENE GLYCOL 17 GM PACKET PO (08:44)
[2017-06-04] MEDS: traZODone 100 MG TAB PO (20:30)
[2017-06-05] MEDS: METHADONE (1 MG/ML 5 ML PO UD SYG) PO ×5 (00:20→23:53)
[2017-06-05] MEDS: ALPRAZOLAM 0.5 MG TAB PO ×6 (00:20→23:53)
[2017-06-05] MEDS: HYDROmorphONE 2 MG/ML SYG IV ×6 (03:51→21:22)
[2017-06-05] MEDS: POLYETHYLENE GLYCOL 17 GM PACKET PO (09:00)
[2017-06-05] MEDS: SENNA TAB PO ×2 (09:00→21:00)
[2017-06-05] MEDS: DULOXETINE 30 MG CAP DR PO (09:25)
[2017-06-05] MEDS: NICOTINE (21 MG/24 HR) PATCH TRANSDERM (09:25)
[2017-06-05] MEDS: DOCUSATE SODIUM 100 MG CAP PO ×2 (09:26→21:00)
[2017-06-05] MEDS: BACLOFEN 10 MG TAB PO ×4 (09:26→21:15)
[2017-06-05] MEDS: SOD CHLORIDE 0.9% 1,000 ML IV ×2 (09:27→21:14)
[2017-06-05] MEDS: ENOXAPARIN 40 MG/0.4 ML SYG SC (09:28)
[2017-06-05] MEDS: COLLAGENASE 30 GM TUBE TOP (09:28)
[2017-06-05] MEDS: traZODone 100 MG TAB PO (21:15)
[2017-06-06] MEDS: HYDROmorphONE 2 MG/ML SYG IV ×8 (00:44→22:02)
[2017-06-06] MEDS: METHADONE (1 MG/ML 5 ML PO UD SYG) PO ×3 (06:11→17:53)
[2017-06-06] MEDS: ALPRAZOLAM 0.5 MG TAB PO ×3 (06:12→17:56)
[2017-06-06] MEDS: SOD CHLORIDE 0.9% 1,000 ML IV ×2 (06:25→17:51)
[2017-06-06] MEDS: DOCUSATE SODIUM 100 MG CAP PO ×2 (08:32→20:35)
[2017-06-06] MEDS: BACLOFEN 10 MG TAB PO ×4 (08:32→20:34)
[2017-06-06] MEDS: NICOTINE (21 MG/24 HR) PATCH TRANSDERM (08:32)
[2017-06-06] MEDS: DULOXETINE 30 MG CAP DR PO (08:32)
[2017-06-06] MEDS: POLYETHYLENE GLYCOL 17 GM PACKET PO (08:33)
[2017-06-06] MEDS: SENNA TAB PO ×2 (08:33→20:35)
[2017-06-06] MEDS: ENOXAPARIN 40 MG/0.4 ML SYG SC (08:33)
[2017-06-06] MEDS: COLLAGENASE 30 GM TUBE TOP (08:33)
[2017-06-06] MEDS: traZODone 100 MG TAB PO (20:34)
[2017-06-07] MEDS: SOD CHLORIDE 0.9% 1,000 ML IV ×2 (00:03→14:09)
[2017-06-07] MEDS: ALPRAZOLAM 0.5 MG TAB PO ×4 (00:08→18:17)
[2017-06-07] MEDS: METHADONE (1 MG/ML 5 ML PO UD SYG) PO ×4 (00:08→18:17)
[2017-06-07] MEDS: HYDROmorphONE 2 MG/ML SYG IV ×5 (07:37→20:49)
[2017-06-07] MEDS: DULOXETINE 30 MG CAP DR PO (10:48)
[2017-06-07] MEDS: BACLOFEN 10 MG TAB PO ×4 (10:48→20:56)
[2017-06-07] MEDS: DOCUSATE SODIUM 100 MG CAP PO ×2 (10:49→20:56)
[2017-06-07] MEDS: SENNA TAB PO ×2 (10:50→20:56)
[2017-06-07] MEDS: POLYETHYLENE GLYCOL 17 GM PACKET PO (10:50)
[2017-06-07] MEDS: NICOTINE (21 MG/24 HR) PATCH TRANSDERM (10:51)
[2017-06-07] MEDS: ENOXAPARIN 40 MG/0.4 ML SYG SC (10:51)
[2017-06-07] MEDS: COLLAGENASE 30 GM TUBE TOP (11:21)
[2017-06-07] MEDS: traZODone 100 MG TAB PO (20:56)
[2017-06-08] MEDS: ALPRAZOLAM 0.5 MG TAB PO ×4 (00:16→18:17)
[2017-06-08] MEDS: METHADONE (1 MG/ML 5 ML PO UD SYG) PO ×4 (00:17→18:18)
[2017-06-08] MEDS: HYDROmorphONE 2 MG/ML SYG IV ×6 (03:13→19:49)
[2017-06-08] MEDS: DOCUSATE SODIUM 100 MG CAP PO ×2 (08:54→20:49)
[2017-06-08] MEDS: BACLOFEN 10 MG TAB PO ×4 (08:54→20:49)
[2017-06-08] MEDS: SENNA TAB PO ×2 (08:54→20:49)
[2017-06-08] MEDS: DULOXETINE 30 MG CAP DR PO (08:55)
[2017-06-08] MEDS: POLYETHYLENE GLYCOL 17 GM PACKET PO (08:55)
[2017-06-08] MEDS: NICOTINE (21 MG/24 HR) PATCH TRANSDERM (08:55)
[2017-06-08] MEDS: ENOXAPARIN 40 MG/0.4 ML SYG SC (08:58)
[2017-06-08] MEDS: COLLAGENASE 30 GM TUBE TOP (08:59)
[2017-06-08] MEDS: traZODone 100 MG TAB PO (20:49)
[2017-06-09] MEDS: ALPRAZOLAM 0.5 MG TAB PO ×4 (00:40→18:00)
[2017-06-09] MEDS: METHADONE (1 MG/ML 5 ML PO UD SYG) PO ×4 (00:40→18:01)
[2017-06-09] MEDS: HYDROmorphONE 2 MG/ML SYG IV ×5 (02:03→20:16)
[2017-06-09] MEDS: POLYETHYLENE GLYCOL 17 GM PACKET PO (08:41)
[2017-06-09] MEDS: SENNA TAB PO ×2 (08:41→20:15)
[2017-06-09] MEDS: ENOXAPARIN 40 MG/0.4 ML SYG SC (08:41)
[2017-06-09] MEDS: NICOTINE (21 MG/24 HR) PATCH TRANSDERM (08:41)
[2017-06-09] MEDS: BACLOFEN 10 MG TAB PO ×4 (08:42→20:15)
[2017-06-09] MEDS: DOCUSATE SODIUM 100 MG CAP PO ×2 (08:42→20:15)
[2017-06-09] MEDS: DULOXETINE 30 MG CAP DR PO (08:42)
[2017-06-09] MEDS: COLLAGENASE 30 GM TUBE TOP (13:55)
[2017-06-09] MEDS: traZODone 100 MG TAB PO (20:15)
[2017-06-10] MEDS: ALPRAZOLAM 0.5 MG TAB PO ×4 (00:41→17:42)
[2017-06-10] MEDS: METHADONE (1 MG/ML 5 ML PO UD SYG) PO ×5 (00:42→17:42)
[2017-06-10] MEDS: HYDROmorphONE 2 MG/ML SYG IV ×6 (03:50→22:10)
[2017-06-10] MEDS: POLYETHYLENE GLYCOL 17 GM PACKET PO (09:00)
[2017-06-10] MEDS: SENNA TAB PO ×2 (09:00→20:18)
[2017-06-10] MEDS: BACLOFEN 10 MG TAB PO ×4 (09:17→20:18)
[2017-06-10] MEDS: DULOXETINE 30 MG CAP DR PO (09:17)
[2017-06-10] MEDS: DOCUSATE SODIUM 100 MG CAP PO ×2 (09:17→20:18)
[2017-06-10] MEDS: ENOXAPARIN 40 MG/0.4 ML SYG SC (09:18)
[2017-06-10] MEDS: COLLAGENASE 30 GM TUBE TOP ×2 (09:19→22:11)
[2017-06-10] MEDS: NICOTINE (21 MG/24 HR) PATCH TRANSDERM (09:19)
[2017-06-10] MEDS: traZODone 100 MG TAB PO (20:18)
[2017-06-11] MEDS: METHADONE (1 MG/ML 5 ML PO UD SYG) PO ×4 (00:22→18:04)
[2017-06-11] MEDS: ALPRAZOLAM 0.5 MG TAB PO ×4 (00:22→18:04)
[2017-06-11] MEDS: HYDROmorphONE 2 MG/ML SYG IV ×6 (03:26→20:22)
[2017-06-11] MEDS: NICOTINE (21 MG/24 HR) PATCH TRANSDERM (08:20)
[2017-06-11] MEDS: BACLOFEN 10 MG TAB PO ×4 (08:20→20:14)
[2017-06-11] MEDS: ENOXAPARIN 40 MG/0.4 ML SYG SC (08:20)
[2017-06-11] MEDS: DULOXETINE 30 MG CAP DR PO (08:20)
[2017-06-11] MEDS: SENNA TAB PO ×2 (08:32→20:15)
[2017-06-11] MEDS: DOCUSATE SODIUM 100 MG CAP PO ×2 (08:32→20:14)
[2017-06-11] MEDS: COLLAGENASE 30 GM TUBE TOP ×2 (08:32→19:52)
[2017-06-11] MEDS: POLYETHYLENE GLYCOL 17 GM PACKET PO (08:32)
[2017-06-11] MEDS: traZODone 100 MG TAB PO (20:14)
[2017-06-12] MEDS: ALPRAZOLAM 0.5 MG TAB PO ×4 (00:19→18:07)
[2017-06-12] MEDS: METHADONE (1 MG/ML 5 ML PO UD SYG) PO ×4 (00:19→18:07)
[2017-06-12] MEDS: HYDROmorphONE 2 MG/ML SYG IV ×5 (06:30→20:09)
[2017-06-12] MEDS: SENNA TAB PO ×2 (09:00→20:09)
[2017-06-12] MEDS: COLLAGENASE 30 GM TUBE TOP (09:00)
[2017-06-12] MEDS: POLYETHYLENE GLYCOL 17 GM PACKET PO (09:00)
[2017-06-12] MEDS: DULOXETINE 30 MG CAP DR PO (09:05)
[2017-06-12] MEDS: NICOTINE (21 MG/24 HR) PATCH TRANSDERM (09:05)
[2017-06-12] MEDS: BACLOFEN 10 MG TAB PO ×4 (09:06→20:08)
[2017-06-12] MEDS: DOCUSATE SODIUM 100 MG CAP PO ×2 (09:06→20:08)
[2017-06-12] MEDS: ENOXAPARIN 40 MG/0.4 ML SYG SC (09:09)
[2017-06-12] MEDS: traZODone 100 MG TAB PO (20:08)
[2017-06-13] MEDS: HYDROmorphONE 2 MG/ML SYG IV ×6 (03:51→19:04)
[2017-06-13] MEDS: ALPRAZOLAM 0.5 MG TAB PO ×4 (05:45→17:21)
[2017-06-13] MEDS: METHADONE (1 MG/ML 5 ML PO UD SYG) PO ×4 (05:45→17:21)
[2017-06-13] MEDS: DOCUSATE SODIUM 100 MG CAP PO ×2 (09:00→20:07)
[2017-06-13] MEDS: POLYETHYLENE GLYCOL 17 GM PACKET PO (09:00)
[2017-06-13] MEDS: SENNA TAB PO ×2 (09:00→20:08)
[2017-06-13] MEDS: DULOXETINE 30 MG CAP DR PO (09:52)
[2017-06-13] MEDS: BACLOFEN 10 MG TAB PO ×4 (09:52→20:07)
[2017-06-13] MEDS: NICOTINE (21 MG/24 HR) PATCH TRANSDERM (09:53)
[2017-06-13] MEDS: ENOXAPARIN 40 MG/0.4 ML SYG SC (09:55)
[2017-06-13] MEDS: COLLAGENASE 30 GM TUBE TOP (10:01)
[2017-06-13] MEDS: traZODone 100 MG TAB PO (20:07)
[2017-06-14] MEDS: ALPRAZOLAM 0.5 MG TAB PO ×4 (00:09→18:02)
[2017-06-14] MEDS: METHADONE (1 MG/ML 5 ML PO UD SYG) PO ×4 (00:09→18:02)
[2017-06-14] MEDS: HYDROmorphONE 2 MG/ML SYG IV ×7 (04:22→23:12)
[2017-06-14] MEDS: POLYETHYLENE GLYCOL 17 GM PACKET PO (09:00)
[2017-06-14] MEDS: DOCUSATE SODIUM 100 MG CAP PO ×2 (09:00→20:14)
[2017-06-14] MEDS: SENNA TAB PO ×2 (09:00→20:14)
[2017-06-14] MEDS: BACLOFEN 10 MG TAB PO ×4 (09:08→20:14)
[2017-06-14] MEDS: NICOTINE (21 MG/24 HR) PATCH TRANSDERM (09:09)
[2017-06-14] MEDS: DULOXETINE 30 MG CAP DR PO (09:09)
[2017-06-14] MEDS: COLLAGENASE 30 GM TUBE TOP (09:14)
[2017-06-14] MEDS: ENOXAPARIN 40 MG/0.4 ML SYG SC (09:14)
[2017-06-14] MEDS: traZODone 100 MG TAB PO (20:14)
[2017-06-15] MEDS: ALPRAZOLAM 0.5 MG TAB PO ×5 (00:38→23:49)
[2017-06-15] MEDS: METHADONE (1 MG/ML 5 ML PO UD SYG) PO ×5 (00:42→23:49)
[2017-06-15] MEDS: HYDROmorphONE 2 MG/ML SYG IV ×5 (08:27→22:11)
[2017-06-15] MEDS: DULOXETINE 30 MG CAP DR PO (08:30)
[2017-06-15] MEDS: BACLOFEN 10 MG TAB PO ×4 (08:30→20:40)
[2017-06-15] MEDS: ENOXAPARIN 40 MG/0.4 ML SYG SC (08:31)
[2017-06-15] MEDS: COLLAGENASE 30 GM TUBE TOP (08:33)
[2017-06-15] MEDS: NICOTINE (21 MG/24 HR) PATCH TRANSDERM (08:33)
[2017-06-15] MEDS: DOCUSATE SODIUM 100 MG CAP PO ×2 (08:34→20:36)
[2017-06-15] MEDS: SENNA TAB PO ×2 (08:34→20:35)
[2017-06-15] MEDS: POLYETHYLENE GLYCOL 17 GM PACKET PO (08:34)
[2017-06-15] MEDS: traZODone 100 MG TAB PO (20:40)
[2017-06-16] MEDS: HYDROmorphONE 2 MG/ML SYG IV ×7 (01:21→22:05)
[2017-06-16] MEDS: METHADONE (1 MG/ML 5 ML PO UD SYG) PO ×3 (06:45→18:06)
[2017-06-16] MEDS: ALPRAZOLAM 0.5 MG TAB PO ×3 (06:45→18:06)
[2017-06-16] MEDS: POLYETHYLENE GLYCOL 17 GM PACKET PO (09:00)
[2017-06-16] MEDS: DOCUSATE SODIUM 100 MG CAP PO ×2 (09:00→20:51)
[2017-06-16] MEDS: SENNA TAB PO ×2 (09:00→20:51)
[2017-06-16] MEDS: BACLOFEN 10 MG TAB PO ×4 (09:36→20:52)
[2017-06-16] MEDS: DULOXETINE 30 MG CAP DR PO (09:37)
[2017-06-16] MEDS: NICOTINE (21 MG/24 HR) PATCH TRANSDERM (09:37)
[2017-06-16] MEDS: ENOXAPARIN 40 MG/0.4 ML SYG SC (09:40)
[2017-06-16] MEDS: COLLAGENASE 30 GM TUBE TOP (09:42)
[2017-06-16] MEDS: traZODone 100 MG TAB PO (20:51)
[2017-06-17] MEDS: ALPRAZOLAM 0.5 MG TAB PO ×4 (00:01→17:53)
[2017-06-17] MEDS: METHADONE (1 MG/ML 5 ML PO UD SYG) PO ×4 (00:02→17:53)
[2017-06-17] MEDS: HYDROmorphONE 2 MG/ML SYG IV ×5 (02:09→20:21)
[2017-06-17] MEDS: BACLOFEN 10 MG TAB PO ×4 (08:51→20:22)
[2017-06-17] MEDS: DULOXETINE 30 MG CAP DR PO (08:52)
[2017-06-17] MEDS: DOCUSATE SODIUM 100 MG CAP PO ×2 (08:52→20:23)
[2017-06-17] MEDS: NICOTINE (21 MG/24 HR) PATCH TRANSDERM (08:52)
[2017-06-17] MEDS: ENOXAPARIN 40 MG/0.4 ML SYG SC (08:52)
[2017-06-17] MEDS: SENNA TAB PO ×2 (08:53→20:23)
[2017-06-17] MEDS: POLYETHYLENE GLYCOL 17 GM PACKET PO (08:53)
[2017-06-17] MEDS: COLLAGENASE 30 GM TUBE TOP (08:53)
[2017-06-17] MEDS: traZODone 100 MG TAB PO (20:22)
[2017-06-18] MEDS: METHADONE (1 MG/ML 5 ML PO UD SYG) PO ×4 (00:14→17:51)
[2017-06-18] MEDS: ALPRAZOLAM 0.5 MG TAB PO ×4 (00:14→17:52)
[2017-06-18] MEDS: HYDROmorphONE 2 MG/ML SYG IV ×7 (02:07→22:52)
[2017-06-18] MEDS: DULOXETINE 30 MG CAP DR PO (08:16)
[2017-06-18] MEDS: NICOTINE (21 MG/24 HR) PATCH TRANSDERM (08:16)
[2017-06-18] MEDS: DOCUSATE SODIUM 100 MG CAP PO ×2 (08:16→21:15)
[2017-06-18] MEDS: BACLOFEN 10 MG TAB PO ×4 (08:17→21:15)
[2017-06-18] MEDS: ENOXAPARIN 40 MG/0.4 ML SYG SC (08:17)
[2017-06-18] MEDS: SENNA TAB PO ×2 (08:18→21:15)
[2017-06-18] MEDS: COLLAGENASE 30 GM TUBE TOP ×2 (08:18→21:31)
[2017-06-18] MEDS: POLYETHYLENE GLYCOL 17 GM PACKET PO (08:18)
[2017-06-18] MEDS: traZODone 100 MG TAB PO (21:15)
[2017-06-19] MEDS: METHADONE (1 MG/ML 5 ML PO UD SYG) PO ×4 (00:21→18:29)
[2017-06-19] MEDS: ALPRAZOLAM 0.5 MG TAB PO ×4 (00:23→18:29)
[2017-06-19] MEDS: HYDROmorphONE 2 MG/ML SYG IV ×4 (02:46→13:44)
[2017-06-19 06:54] LABS: ADD MAN DIFF? NO
[2017-06-19 06:59] LABS: WHITE BLOOD COUNT 11.5 10^3/ul (4.8-10.8)
[2017-06-19 06:59] LABS: BASOPHILS % 0.3 % (0.0-2.0); EOSINOPHILS # 0.4 10^3/ul (0.0-0.5); EOSINOPHILS % 3.7 % (0.0-7.0); HEMATOCRIT 49.5 % (42.0-52.0); HEMOGLOBIN 15.4 g/dl (14.0-18.0); LYMPHOCYTES # 1.8 10^3/ul (0.8-2.9); LYMPHOCYTES % 15.6 % (15.0-51.0); MEAN CORPUSCULAR HEMOGLOBIN 26.1 pg (29.0-33.0); MEAN CORPUSCULAR HGB CONC 31.1 g/dl (32.0-37.0); MEAN CORPUSCULAR VOLUME 83.9 fl (82.0-101.0); MEAN PLATELET VOLUME 11.5 fl (7.4-10.4); MONOCYTE # 0.7 10^3/ul (0.3-0.9); MONOCYTES % 6.1 % (0.0-11.0); NEUTROPHIL # 8.5 10^3/ul (1.6-7.5); PLATELET COUNT 209 10^3/UL (140-415); RED CELL DISTRIBUTION WIDTH 14.3 % (11.5-14.5)
[2017-06-19 07:33] LABS: ALANINE AMINOTRANSFERASE 38 IU/L (13-69); ALBUMIN 4.3 g/dl (3.3-4.9); ALKALINE PHOSPHATASE 134 IU/L (42-121); ANION GAP 18 (8-16); ASPARTATE AMINO TRANSFERASE 26 IU/L (15-46); BILIRUBIN,INDIRECT 0.1 mg/dl (0-1.1); BILIRUBIN,TOTAL 0.1 mg/dl (0.2-1.3); BLOOD UREA NITROGEN 27 mg/dl (7-20); CALCIUM 9.9 mg/dl (8.4-10.2); CARBON DIOXIDE 35 mmol/L (21-31); CHLORIDE 103 mmol/L (97-110); CREATININE 0.84 mg/dl (0.61-1.24); GLUCOSE 105 mg/dl (70-220); SODIUM 151 mmol/L (135-144); TOTAL PROTEIN 8.6 g/dl (6.1-8.1)
[2017-06-19] MEDS: BACLOFEN 10 MG TAB PO ×4 (08:56→20:37)
[2017-06-19] MEDS: DULOXETINE 30 MG CAP DR PO (08:56)
[2017-06-19] MEDS: SENNA TAB PO ×2 (08:56→20:37)
[2017-06-19] MEDS: POLYETHYLENE GLYCOL 17 GM PACKET PO (08:57)
[2017-06-19] MEDS: DOCUSATE SODIUM 100 MG CAP PO ×2 (08:57→20:37)
[2017-06-19] MEDS: NICOTINE (14 MG/24 HR) PATCH TRANSDERM (08:57)
[2017-06-19] MEDS: ENOXAPARIN 40 MG/0.4 ML SYG SC (09:02)
[2017-06-19] MEDS: SOD CHLORIDE 0.45% 1,000 ML IV (13:44)
[2017-06-19 14:25] LABS: ADD UMIC YES; UR ASCORBIC ACID 40 mg/dL (NEGATIVE); UR BACTERIA FEW /HPF (NONE SEEN); UR BILIRUBIN (Dip) NEGATIVE (NEGATIVE); UR BLOOD (Dip) 1+ mg/dL (NEGATIVE); UR BUDDING YEAST FEW /HPF (NONE SEEN); UR CLARITY SLIGHTLY CLOUDY (CLEAR); UR COLOR YELLOW (YELLOW); UR GLUCOSE (Dip) NEGATIVE (NEGATIVE); UR KETONES (Dip) NEGATIVE (NEGATIVE); UR LEUKOCYTE ESTERASE (Dip) 3+ Leu/ul (NEGATIVE); UR NITRITE (Dip) NEGATIVE (NEGATIVE); UR RBC 1 /HPF (0-5); UR SPECIFIC GRAVITY (Dip) 1.011 (1.003-1.030); UR TOTAL PROTEIN (Dip) NEGATIVE (NEGATIVE); UR UROBILINOGEN (Dip) NEGATIVE (NEGATIVE); UR WBC 177 /HPF (0-5)
[2017-06-19] MEDS: COLLAGENASE 30 GM TUBE TOP (15:52)
[2017-06-19] MEDS: traZODone 100 MG TAB PO (20:37)
[2017-06-20] MEDS: ALPRAZOLAM 0.5 MG TAB PO ×4 (00:24→18:01)
[2017-06-20] MEDS: METHADONE (1 MG/ML 5 ML PO UD SYG) PO ×4 (00:24→18:06)
[2017-06-20] MEDS: HYDROmorphONE 2 MG/ML SYG IV ×6 (03:40→21:21)
[2017-06-20 05:36] LABS: ADD MAN DIFF? NO
[2017-06-20 05:39] LABS: WHITE BLOOD COUNT 8.5 10^3/ul (4.8-10.8)
[2017-06-20 05:39] LABS: BASOPHILS % 0.4 % (0.0-2.0); EOSINOPHILS # 0.4 10^3/ul (0.0-0.5); EOSINOPHILS % 4.7 % (0.0-7.0); HEMATOCRIT 39.7 % (42.0-52.0); HEMOGLOBIN 12.5 g/dl (14.0-18.0); LYMPHOCYTES % 23.6 % (15.0-51.0); MEAN CORPUSCULAR HEMOGLOBIN 26.3 pg (29.0-33.0); MEAN CORPUSCULAR HGB CONC 31.5 g/dl (32.0-37.0); MEAN CORPUSCULAR VOLUME 83.4 fl (82.0-101.0); MEAN PLATELET VOLUME 11.5 fl (7.4-10.4); MONOCYTE # 0.4 10^3/ul (0.3-0.9); MONOCYTES % 4.5 % (0.0-11.0); NEUTROPHIL # 5.7 10^3/ul (1.6-7.5); NEUTROPHILS % 66.6 % (39.0-77.0); PLATELET COUNT 160 10^3/UL (140-415); RED BLOOD COUNT 4.76 10^6/ul (4.70-6.10)
[2017-06-20 05:58] LABS: MAGNESIUM 1.9 mg/dl (1.7-2.5)
[2017-06-20 05:59] LABS: ANION GAP 12 (8-16); BLOOD UREA NITROGEN 21 mg/dl (7-20); CALCIUM 9.2 mg/dl (8.4-10.2); CARBON DIOXIDE 32 mmol/L (21-31); CHLORIDE 104 mmol/L (97-110); CREATININE 0.72 mg/dl (0.61-1.24); GLUCOSE 135 mg/dl (70-220); POTASSIUM 4.9 mmol/L (3.5-5.1); SODIUM 143 mmol/L (135-144)
[2017-06-20] MEDS: DOCUSATE SODIUM 100 MG CAP PO ×2 (08:39→20:44)
[2017-06-20] MEDS: DULOXETINE 30 MG CAP DR PO (08:39)
[2017-06-20] MEDS: NICOTINE (14 MG/24 HR) PATCH TRANSDERM (08:39)
[2017-06-20] MEDS: BACLOFEN 10 MG TAB PO ×4 (08:39→20:44)
[2017-06-20] MEDS: ENOXAPARIN 40 MG/0.4 ML SYG SC (08:40)
[2017-06-20] MEDS: POLYETHYLENE GLYCOL 17 GM PACKET PO (08:46)
[2017-06-20] MEDS: SENNA TAB PO ×2 (08:46→20:44)
[2017-06-20] MEDS: traZODone 100 MG TAB PO (20:44)
[2017-06-21] MEDS: HYDROmorphONE 2 MG/ML SYG IV ×5 (02:25→18:45)
[2017-06-21] MEDS: METHADONE (1 MG/ML 5 ML PO UD SYG) PO ×4 (05:58→17:33)
[2017-06-21] MEDS: ALPRAZOLAM 0.5 MG TAB PO ×4 (05:59→17:32)
[2017-06-21] MEDS: NICOTINE (14 MG/24 HR) PATCH TRANSDERM (08:20)
[2017-06-21] MEDS: DULOXETINE 30 MG CAP DR PO (08:20)
[2017-06-21] MEDS: BACLOFEN 10 MG TAB PO ×4 (08:20→20:51)
[2017-06-21] MEDS: DOCUSATE SODIUM 100 MG CAP PO ×2 (08:20→20:50)
[2017-06-21] MEDS: ENOXAPARIN 40 MG/0.4 ML SYG SC (08:21)
[2017-06-21] MEDS: SENNA TAB PO ×2 (08:21→20:50)
[2017-06-21] MEDS: POLYETHYLENE GLYCOL 17 GM PACKET PO (08:21)
[2017-06-21] MEDS: COLLAGENASE 30 GM TUBE TOP (08:21)
[2017-06-21] MEDS: SOD CHLORIDE 0.9% 1,000 ML IV (08:22)
[2017-06-21] MEDS: traZODone 100 MG TAB PO (20:51)
[2017-06-22] MEDS: METHADONE (1 MG/ML 5 ML PO UD SYG) PO ×4 (00:22→18:51)
[2017-06-22] MEDS: ALPRAZOLAM 0.5 MG TAB PO ×4 (00:23→18:51)
[2017-06-22] MEDS: HYDROmorphONE 2 MG/ML SYG IV ×6 (05:30→21:04)
[2017-06-22] MEDS: NICOTINE (14 MG/24 HR) PATCH TRANSDERM (08:20)
[2017-06-22] MEDS: DULOXETINE 30 MG CAP DR PO (08:21)
[2017-06-22] MEDS: BACLOFEN 10 MG TAB PO ×4 (08:21→21:06)
[2017-06-22] MEDS: DOCUSATE SODIUM 100 MG CAP PO ×2 (08:21→21:05)
[2017-06-22] MEDS: SENNA TAB PO ×2 (08:22→21:00)
[2017-06-22] MEDS: ENOXAPARIN 40 MG/0.4 ML SYG SC (08:22)
[2017-06-22] MEDS: POLYETHYLENE GLYCOL 17 GM PACKET PO (08:22)
[2017-06-22] MEDS: COLLAGENASE 30 GM TUBE TOP (08:29)
[2017-06-22] MEDS: traZODone 100 MG TAB PO (21:06)
[2017-06-23] MEDS: ALPRAZOLAM 0.5 MG TAB PO ×4 (00:09→17:51)
[2017-06-23] MEDS: METHADONE (1 MG/ML 5 ML PO UD SYG) PO ×4 (00:10→17:50)
[2017-06-23] MEDS: HYDROmorphONE 2 MG/ML SYG IV ×6 (02:47→19:47)
[2017-06-23] MEDS: POLYETHYLENE GLYCOL 17 GM PACKET PO (09:00)
[2017-06-23] MEDS: SENNA TAB PO ×2 (09:00→20:18)
[2017-06-23] MEDS: DOCUSATE SODIUM 100 MG CAP PO ×2 (09:32→20:19)
[2017-06-23] MEDS: BACLOFEN 10 MG TAB PO ×4 (09:32→20:18)
[2017-06-23] MEDS: DULOXETINE 30 MG CAP DR PO (09:32)
[2017-06-23] MEDS: NICOTINE (14 MG/24 HR) PATCH TRANSDERM (09:33)
[2017-06-23] MEDS: ENOXAPARIN 40 MG/0.4 ML SYG SC (09:33)
[2017-06-23] MEDS: COLLAGENASE 30 GM TUBE TOP (09:37)
[2017-06-23] MEDS: traZODone 100 MG TAB PO (20:18)
[2017-06-24] MEDS: ALPRAZOLAM 0.5 MG TAB PO ×4 (00:05→18:09)
[2017-06-24] MEDS: METHADONE (1 MG/ML 5 ML PO UD SYG) PO ×4 (00:05→18:08)
[2017-06-24] MEDS: HYDROmorphONE 2 MG/ML SYG IV ×7 (01:37→22:28)
[2017-06-24] MEDS: DOCUSATE SODIUM 100 MG CAP PO ×2 (08:19→21:00)
[2017-06-24] MEDS: BACLOFEN 10 MG TAB PO ×4 (08:19→22:26)
[2017-06-24] MEDS: NICOTINE (14 MG/24 HR) PATCH TRANSDERM (08:19)
[2017-06-24] MEDS: DULOXETINE 30 MG CAP DR PO (08:19)
[2017-06-24] MEDS: ENOXAPARIN 40 MG/0.4 ML SYG SC (08:20)
[2017-06-24] MEDS: COLLAGENASE 30 GM TUBE TOP (08:23)
[2017-06-24] MEDS: POLYETHYLENE GLYCOL 17 GM PACKET PO (09:00)
[2017-06-24] MEDS: SENNA TAB PO ×2 (09:00→21:00)
[2017-06-24] MEDS: traZODone 100 MG TAB PO (22:26)
[2017-06-25] MEDS: ALPRAZOLAM 0.5 MG TAB PO ×4 (00:01→17:44)
[2017-06-25] MEDS: METHADONE (1 MG/ML 5 ML PO UD SYG) PO ×4 (00:01→17:44)
[2017-06-25] MEDS: HYDROmorphONE 2 MG/ML SYG IV ×7 (01:42→21:49)
[2017-06-25] MEDS: BACLOFEN 10 MG TAB PO ×4 (08:51→21:52)
[2017-06-25] MEDS: SENNA TAB PO ×2 (08:51→21:00)
[2017-06-25] MEDS: DOCUSATE SODIUM 100 MG CAP PO ×2 (08:51→21:00)
[2017-06-25] MEDS: DULOXETINE 30 MG CAP DR PO (08:52)
[2017-06-25] MEDS: NICOTINE (14 MG/24 HR) PATCH TRANSDERM (08:52)
[2017-06-25] MEDS: ENOXAPARIN 40 MG/0.4 ML SYG SC (08:53)
[2017-06-25] MEDS: POLYETHYLENE GLYCOL 17 GM PACKET PO (09:00)
[2017-06-25] MEDS: COLLAGENASE 30 GM TUBE TOP (10:59)
[2017-06-25] MEDS: traZODone 100 MG TAB PO (21:52)
[2017-06-26] MEDS: METHADONE (1 MG/ML 5 ML PO UD SYG) PO ×4 (00:03→17:45)
[2017-06-26] MEDS: ALPRAZOLAM 0.5 MG TAB PO ×4 (00:03→17:45)
[2017-06-26] MEDS: DOCUSATE SODIUM 100 MG CAP PO ×3 (00:04→20:20)
[2017-06-26 06:43] LABS: ADD MAN DIFF? NO
[2017-06-26 06:45] LABS: BASOPHILS % 0.3 % (0.0-2.0); EOSINOPHILS # 0.4 10^3/ul (0.0-0.5); EOSINOPHILS % 7.1 % (0.0-7.0); HEMATOCRIT 41.8 % (42.0-52.0); HEMOGLOBIN 13.2 g/dl (14.0-18.0); LYMPHOCYTES # 2.5 10^3/ul (0.8-2.9); LYMPHOCYTES % 41.2 % (15.0-51.0); MEAN CORPUSCULAR HEMOGLOBIN 26.1 pg (29.0-33.0); MEAN CORPUSCULAR HGB CONC 31.6 g/dl (32.0-37.0); MEAN CORPUSCULAR VOLUME 82.8 fl (82.0-101.0); MEAN PLATELET VOLUME 10.8 fl (7.4-10.4); MONOCYTE # 0.4 10^3/ul (0.3-0.9); MONOCYTES % 6.2 % (0.0-11.0); NEUTROPHIL # 2.7 10^3/ul (1.6-7.5); PLATELET COUNT 164 10^3/UL (140-415); RED BLOOD COUNT 5.05 10^6/ul (4.70-6.10); RED CELL DISTRIBUTION WIDTH 14.2 % (11.5-14.5)
[2017-06-26 07:29] LABS: INR 1.03; PROTIME 13.6 Sec (11.9-14.9); PT RATIO 1.1
[2017-06-26 07:40] LABS: ALANINE AMINOTRANSFERASE 35 IU/L (13-69); ALBUMIN 3.7 g/dl (3.3-4.9); ALBUMIN/GLOBULIN RATIO 0.97; ALKALINE PHOSPHATASE 102 IU/L (42-121); ANION GAP 15 (8-16); ASPARTATE AMINO TRANSFERASE 22 IU/L (15-46); BLOOD UREA NITROGEN 31 mg/dl (7-20); CALCIUM 8.9 mg/dl (8.4-10.2); CARBON DIOXIDE 34 mmol/L (21-31); CHLORIDE 98 mmol/L (97-110); CREATININE 0.96 mg/dl (0.61-1.24); GLUCOSE 88 mg/dl (70-220); POTASSIUM 4.1 mmol/L (3.5-5.1); SODIUM 143 mmol/L (135-144); TOTAL PROTEIN 7.5 g/dl (6.1-8.1)
[2017-06-26 07:48] LABS: MAGNESIUM 1.8 mg/dl (1.7-2.5)
[2017-06-26] MEDS: BACLOFEN 10 MG TAB PO ×4 (08:39→20:07)
[2017-06-26] MEDS: NICOTINE (14 MG/24 HR) PATCH TRANSDERM (08:39)
[2017-06-26] MEDS: ENOXAPARIN 40 MG/0.4 ML SYG SC (08:39)
[2017-06-26] MEDS: DULOXETINE 30 MG CAP DR PO (08:39)
[2017-06-26] MEDS: COLLAGENASE 30 GM TUBE TOP (08:40)
[2017-06-26] MEDS: POLYETHYLENE GLYCOL 17 GM PACKET PO (08:40)
[2017-06-26] MEDS: SENNA TAB PO ×2 (08:40→20:20)
[2017-06-26] MEDS: HYDROmorphONE 2 MG/ML SYG IV ×3 (09:41→20:04)
[2017-06-26] MEDS: traZODone 100 MG TAB PO (20:07)
[2017-06-26] MEDS: BALSAM PERU/CASTOR OIL 60 GM TUBE TOP (20:10)
[2017-06-27] MEDS: METHADONE (1 MG/ML 5 ML PO UD SYG) PO ×4 (00:21→17:27)
[2017-06-27] MEDS: ALPRAZOLAM 0.5 MG TAB PO ×4 (00:21→17:27)
[2017-06-27] MEDS: HYDROmorphONE 2 MG/ML SYG IV ×2 (07:02→13:18)
[2017-06-27] MEDS: ENOXAPARIN 40 MG/0.4 ML SYG SC (08:30)
[2017-06-27] MEDS: DULOXETINE 30 MG CAP DR PO (08:30)
[2017-06-27] MEDS: DOCUSATE SODIUM 100 MG CAP PO ×2 (08:31→20:26)
[2017-06-27] MEDS: BACLOFEN 10 MG TAB PO ×4 (08:31→20:26)
[2017-06-27] MEDS: NICOTINE (14 MG/24 HR) PATCH TRANSDERM (08:31)
[2017-06-27] MEDS: BALSAM PERU/CASTOR OIL 60 GM TUBE TOP ×2 (08:37→21:17)
[2017-06-27] MEDS: SENNA TAB PO ×2 (08:37→20:27)
[2017-06-27] MEDS: COLLAGENASE 30 GM TUBE TOP (08:37)
[2017-06-27] MEDS: POLYETHYLENE GLYCOL 17 GM PACKET PO (08:38)
[2017-06-27] MEDS: HYDROmorphONE 4 MG TAB PO ×2 (17:00→21:12)
[2017-06-27] MEDS: traZODone 100 MG TAB PO (20:26)
[2017-06-28] MEDS: METHADONE (1 MG/ML 5 ML PO UD SYG) PO ×6 (00:22→23:58)
[2017-06-28] MEDS: ALPRAZOLAM 0.5 MG TAB PO ×5 (00:22→23:58)
[2017-06-28] MEDS: HYDROmorphONE 4 MG TAB PO ×6 (01:20→21:41)
[2017-06-28] MEDS: COLLAGENASE 30 GM TUBE TOP (08:17)
[2017-06-28] MEDS: BACLOFEN 10 MG TAB PO ×4 (08:17→22:14)
[2017-06-28] MEDS: POLYETHYLENE GLYCOL 17 GM PACKET PO (08:17)
[2017-06-28] MEDS: DULOXETINE 30 MG CAP DR PO (08:17)
[2017-06-28] MEDS: BALSAM PERU/CASTOR OIL 60 GM TUBE TOP ×2 (08:17→22:15)
[2017-06-28] MEDS: SENNA TAB PO ×2 (08:17→22:14)
[2017-06-28] MEDS: NICOTINE (14 MG/24 HR) PATCH TRANSDERM (08:18)
[2017-06-28] MEDS: ENOXAPARIN 40 MG/0.4 ML SYG SC (08:19)
[2017-06-28] MEDS: DOCUSATE SODIUM 100 MG CAP PO ×2 (08:20→22:14)
[2017-06-28] MEDS: traZODone 100 MG TAB PO (22:14)
[2017-06-29] MEDS: HYDROmorphONE 4 MG TAB PO ×3 (02:00→13:56)
[2017-06-29] MEDS: ALPRAZOLAM 0.5 MG TAB PO ×2 (05:45→12:04)
[2017-06-29] MEDS: METHADONE (1 MG/ML 5 ML PO UD SYG) PO ×2 (05:45→12:05)
[2017-06-29] MEDS: BACLOFEN 10 MG TAB PO ×2 (08:27→12:05)
[2017-06-29] MEDS: DULOXETINE 30 MG CAP DR PO (08:27)
[2017-06-29] MEDS: ENOXAPARIN 40 MG/0.4 ML SYG SC (08:28)
[2017-06-29] MEDS: NICOTINE (14 MG/24 HR) PATCH TRANSDERM (08:28)
[2017-06-29] MEDS: BALSAM PERU/CASTOR OIL 60 GM TUBE TOP (08:29)
[2017-06-29] MEDS: SENNA TAB PO (08:30)
[2017-06-29] MEDS: COLLAGENASE 30 GM TUBE TOP (08:30)
[2017-06-29] MEDS: DOCUSATE SODIUM 100 MG CAP PO (08:30)
[2017-06-29] MEDS: POLYETHYLENE GLYCOL 17 GM PACKET PO (08:30)
== END 2017-06-29 16:35 | DRG 871 ==
LOC: E/R 22:13 → PP2 05-07 00:52
DX: A41.9 Sepsis, unspecified organism (principal); L89.314 Pressure ulcer of right buttock, stage 4; G82.50 Quadriplegia, unspecified; N39.0 Urinary tract infection, site not specified; E87.0 Hyperosmolality and hypernatremia; Z74.01 Bed confinement status; S14.109S Unspecified injury at unspecified level of cervical spinal cord, sequela; X58.XXXS Exposure to other specified factors, sequela; F32.9 Major depressive disorder, single episode, unspecified; F41.9 Anxiety disorder, unspecified; Z96.89 Presence of other specified functional implants; F17.200 Nicotine dependence, unspecified, uncomplicated; G47.00 Insomnia, unspecified; G89.29 Other chronic pain; N31.9 Neuromuscular dysfunction of bladder, unspecified; E86.0 Dehydration; B96.5 Pseudomonas (aeruginosa) (mallei) (pseudomallei) as the cause of diseases classified elsewhere; B96.89 Other specified bacterial agents as the cause of diseases classified elsewhere
CPT/HCPCS: 36415; 71045; 80048; 80053; 80069; 80150; 81001; 82565; 82962; 83605; 83615; 83735; 84100; 84484; 84520; 85025; 85610; 85730; 87070; 87086; 93005; 94664; 96374; 96375; 97110; 97162; 97165; 97530; 97542; 99285